=== PATIENT | female | born 1950 | race Caucasian/White ===

== ENCOUNTER 2016-06-06 09:25 | Observation (INO) | payer MEDICARE ==
[2016-06-06 09:45] LABS: Glucose,Whole Blood 113 mg/dL (75-99)
[2016-06-06] MEDS ORDERED: SODIUM CHLORIDE 0.9% 1,000 ML IV STA (09:47)
[2016-06-06] MEDS ORDERED: LORazepam 1 MG TAB PO STA (09:47)
[2016-06-06] MEDS ORDERED: ONDANSETRON 4 MG/2 ML VIAL IVP STA (09:47)
[2016-06-06 10:04] LABS: Basophils % (A) 1 %; CH 30.8; CHCM 33.9; Eosinophils # (A) 0.2 k/uL (0-0.7); Eosinophils % (A) 2 %; HCT 44.1 % (34.0-46.0); HDW 2.57; HGB 14.4 gm/dL (11.4-16.0); Luc # (Auto) 0.09; Luc % (Auto) 1; Lymphocytes # (A) 1.3 k/uL (1.0-4.8); Lymphocytes % (A) 17 %; MCH 29.8 pg (25.0-35.0); MCHC 32.7 g/dL (31.0-37.0); MCV 91.4 fL (80.0-100.0); Mean Platelet Volume 7.9; Monocytes # (A) 0.3 k/uL (0-1.0); Monocytes % (A) 4 %; Neutrophils # (A) 5.7 k/uL (1.3-7.7); Neutrophils % (A) 76 %; RBC 4.83 m/uL (3.80-5.40); RDW 12.7 % (11.5-15.5); WBC 7.6 k/uL (3.8-10.6); WBC (Perox) 7.55
[2016-06-06 10:16] LABS: Partial Thromboplastin Time 23.3 sec (22.0-30.0); Prothrombin Time 10.3 sec (9.0-12.0)
[2016-06-06 10:18] LABS: ALT 42 U/L (9-52); AST 28 U/L (14-36); Alkaline Phosphatase 59 U/L (38-126); Amylase 30 U/L (30-110); Anion Gap 18 mmol/L; Blood Urea Nitrogen 9 mg/dL (7-17); Calcium 9.9 mg/dL (8.4-10.2); Carbon Dioxide 20 mmol/L (22-30); Chloride 108 mmol/L (98-107); Glucose 125 mg/dL (74-99); Magnesium 1.6 mg/dL (1.6-2.3); Non-African American GFR(MDRD) >60 (>60 ml/min/1.73 sqM); Potassium 4.2 mmol/L (3.5-5.1); Sodium 146 mmol/L (137-145); Total Protein 7.8 g/dL (6.3-8.2)
[2016-06-06 10:28] LABS: Creatine Kinase 56 U/L (30-135)
[2016-06-06 10:40] LABS: Troponin I <0.012 ng/mL (0.000-0.034)
[2016-06-06] MEDS ORDERED: KETOROLAC 30 MG/ML 1 ML VIAL IVP STA (11:11)
[2016-06-06] MEDS ORDERED: METOCLOPRAMIDE 5 MG/ML 2 ML VIAL IVP STA (11:11)
[2016-06-06] MEDS ORDERED: SODIUM CHLORIDE 0.9% 500 ML IV ONE (12:09)
--- NOTE | 2016-06-06 12:19 | XR ---
EXAMINATION TYPE: XR chest 2V DATE OF EXAM: 06/06/2016 11:58 AM COMPARISON: NONE HISTORY: chest pain TECHNIQUE: Frontal and lateral views of the chest are obtained. FINDINGS: There is no focal air space opacity, pleural effusion, or pneumothorax seen. The cardiac silhouette size is within normal limits. Overlying cardiac leads. The osseous structures are intac t. IMPRESSION: No acute cardiopulmonary process.
--- NOTE | 2016-06-06 12:22 | XR ---
Abdomen HISTORY: Nausea and vomiting, pain on inspiration Frontal view of the abdomen submitted on 2 images. Scoliotic curvature present in the lumbar spine, there is associated degenerative disc change. Surgic al clips are present in the right upper quadrant and there are overlying cardiac leads. Lung bases ar e clear. There is no bowel obstruction or pneumoperitoneum. Probable vascular calcifications are pres ent in the pelvis. IMPRESSION: Nonobstructive bowel gas pattern
--- NOTE | 2016-06-06 12:22 | ED ---
Chest Pain HPI - General Chief Complaint: Chest Pain Stated Complaint: chest pain Time Seen by Provider: 06/06/16 09:42 Source: patient Mode of arrival: wheelchair Limitations: no limitations - History of Present Illness Initial Comments: She has been vomiting for the last 3 days and complaining about the chest pain with a cold sweats and shortness of breath she denies any history of heart disease no stent placement no history of angina. Graves disease and has not been taking her Synthroid religiously. MLD intractable nausea is gone on for 3 days ago worse this morning. Denies any headaches has chest pain has shortness of breath some discomfort in the epigastric area. Denies any symptoms of TIA or CVA no frequency urgency dysuria - Related Data Home Medications Medication Instructions Recorded Confirmed Acetaminophen with Codeine 1 tab PO BID 06/06/16 06/06/16 [Tylenol w/codeine #4] Aspirin 81 mg PO DAILY 06/06/16 06/06/16 Cholecalciferol [Vitamin D3] 1,000 unit PO DAILY 06/06/16 06/06/16 Krill Oil 500 mg PO DAILY 06/06/16 06/06/16 Levothyroxine Sodium [Synthroid] 75 mcg PO DAILY 06/06/16 06/06/16 Multivitamins, Thera [Multivitamin] 1 tab PO DAILY 06/06/16 06/06/16 Nitrofurantoin Macrocrystal 100 mg PO BID 06/06/16 06/06/16 [Macrodantin] Sertraline [Zoloft] 100 mg PO BID 06/06/16 06/06/16 Allergies Allergy/AdvReac Type Severity Reaction Status Date / Time morphine AdvReac Nausea Verified 06/06/16 10:36 Review of Systems ROS Statement: Those systems with pertinent positive or pertinent negative responses have been documented in the HPI. ROS Other: All systems not noted in ROS Statement are negative. EKG Findings - EKG Comments: EKG Findings:: EKG is a sinus bradycardia ventricular rate is 57 and review of this EKG didn't some artifact in now this EKG but the no ST elevation noticed this is a T-wave inversion in lead 1 and V2 and V3 Past Medical History Past Medical History: Pneumonia Additional Past Medical History / Comment(s): graves disease History of Any Multi-Drug Resistant Organisms: None Reported Past Surgical History: Back Surgery, Section, Cholecystectomy Past Psychological History: No Psychological Hx Reported Smoking Status: Never smoker Past Alcohol Use History: None Reported Past Drug Use History: None Reported General Exam - General Exam Comments Initial Comments: General: The patient is awake and alert, in severe distress and now throwing up Skin: Skin is warm and dry and no rashes or lesions are noted. Eye: Pupils are equal, round and reactive to light, extra-ocular movements are intact; there is normal conjunctiva bilaterally. Ears, nose, mouth and throat: There are moist mucous membranes and no oral lesions. Neck: The neck is supple, there is no stiffness Cardiovascular: There is a regular rate and rhythm. No murmur, rub or gallop is appreciated. Respiratory: To auscultation bilateral, crease breath sounds bilaterally Gastrointestinal: Mildly tender in epigastric area Back: There is no tenderness to palpation in the midline. There is no obvious deformity. Musculoskeletal: Normal ROM, no tenderness, There is no pedal edema. There is no calf tenderness or swelling. No cords were appreciated. Neurological: CN II-XII intact, Cranial nerves III through XII are intact. There are no obvious motor or sensory deficits. Coordination appears grossly intact. Speech is normal. Psychiatric: Cooperative, appropriate mood & affect, normal judgment. Limitations: no limitations Course Vital Signs 06/06/16 06/06/16 06/06/16 09:36 10:03 10:04 Temperature 95.6 F L 96.5 F L Pulse Rate 57 L 54 L Respiratory 18 22 Rate Blood Pressure 157/83 194/90 O2 Sat by Pulse 100 100 Oximetry 06/06/16 06/06/16 10:07 12:41 Temperature Pulse Rate 51 L Respiratory 22 15 Rate Blood Pressure 126/88 O2 Sat by Pulse [address] Laguna came to the ER to see the patient, he was given a scope about patient 's syncope, shortness of breath, recent fall and head injury and possible interstitial pulmonary edema Last time she was reassessed him that was about 1250, she is feeling a lot better she still have a bit of a chest pain nausea vomiting has stopped him a chest pain is 80% better when she compared to when she came in she also has some epigastric discomfort Critical Care Time Total Critical Care Time: 35 Critical Care Time: He came in with intractable nausea and vomiting she was quite stressed out at a chest pain as well as shortness of breath and epigastric pain she be admitted under Dr. Harvey she'll be heparinized no initial troponin is negative considering her epigastric pain she be gone on a PEEP IV PPIs she be admitted under Dr. Salazar service for the cardiology consult she has multiple risk factors now being over 50 and a nausea vomiting diaphoresis with the same time gastritis is also possibility that/UL when necessary IV PPIs and will consult cardiology Disposition Clinical Impression: Chest pain, Nausea and vomiting, Epigastric pain, Acute electrocardiogram changes Disposition: ADMITTED IP TO THIS HOSP Condition: Good Referrals: Nonstaff,Physician [Primary Care Provider] - 1-2 days
[2016-06-06] MEDS ORDERED: NITROGLYCERIN SL TABS 0.4 MG TAB SUBLINGUAL PRN (13:01)
[2016-06-06] MEDS ORDERED: ALPRAZolam 0.25 MG TAB PO PRN (13:01)
[2016-06-06] MEDS ORDERED: ACETAMINOPHEN TAB 325 MG TAB PO PRN (13:01)
[2016-06-06] MEDS: HEPARIN SODIUM,PORCINE 5,000 UNIT/ML 1 ML VIAL IV ONE ×2 (13:33→23:21)
[2016-06-06] MEDS: HEPARIN SODIUM,PORCINE/D5W PMX 25,000 UNIT in DEXTROSE/WATER 1 500ML.BAG IV SCH (13:35)
[2016-06-06] MEDS: SODIUM CHLORIDE 0.9% 1,000 ML IV SCH (13:40)
[2016-06-06 14:07] LABS: Appearance,Urine Clear (Clear); Bilirubin,Urine Negative (Negative); Glucose,Urine (UA) Negative (Negative); Ketones,Urine 1+ (Negative); Leukocyte Esterase,Urine Negative (Negative); Nitrite,Urine Negative (Negative); Protein,Urine Negative (Negative); Specific Gravity,Urine 1.015 (1.001-1.035); UA Billing (MACRO vs. MICRO) CHEM; Urobilinogen,Urine <2.0 mg/dL (<2.0)
[2016-06-06 16:26] LABS: Creatine Kinase 44 U/L (30-135)
[2016-06-06 16:38] LABS: Troponin I <0.012 ng/mL (0.000-0.034)
[2016-06-06] MEDS: PANTOPRAZOLE 40 MG/10 ML VIAL IVP SCH (18:09)
[2016-06-06] MEDS: LEVOTHYROXINE 125 MCG TAB PO SCH (18:09)
--- NOTE | 2016-06-06 19:12 | HP ---
DATE OF ADMISSION: Patient is a very pleasant 65-year-old female who used to work as ( ) retired, came in with complaints of chest pain, which started today morning, which is pressure-like in the retrosternal area associated with nausea along with some colds that lasted for about 3 hours, about 8 out of 10 in severity, improved with ketorolac. Her pain is nonpleuritic in nature. Patient has gastroenteritis-like symptoms, has been going on for 3 days along some nausea. Patient denied any lightheadedness at this point of time. Patient's pain is mostly in the epigastric area and retrosternal area. Patient denied any history of CVA or TIA and denied any history of hypertension, diabetes mellitus. Denied any shortness of breath, dysuria, urgency or frequency. REVIEW OF SYSTEMS: CONSTITUTIONAL: No fever, no malaise, no fatigue. HEENT: No recent visual problems or hearing problems. Denied any sore throat. CARDIOVASCULAR: As described in HPI. PULMONARY: No shortness of breath, no cough, no hemoptysis. GASTROINTESTINAL: As described in HPI. NEUROLOGICAL: No headaches, no weakness, no numbness. HEMATOLOGICAL: Denies any bleeding or petechiae. GENITOURINARY: Denies any burning micturition, frequency, or urgency. MUSCULOSKELETAL/RHEUMATOLOGICAL: Denies any joint pain, swelling, or any muscle pain. ENDOCRINE: Denies any polyuria or polydipsia. The rest of the 14 point review of systems is negative. 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 PAST MEDICAL HISTORY: Significant for pneumonia, Graves' disease. PAST SURGICAL HISTORY: Back surgery section, section, cholecystectomy. SOCIAL HISTORY: Denied any smoking, alcohol abuse or any drug abuse. FAMILY HISTORY: Denied any significant family history of premature myocardial infarction in the family. PHYSICAL EXAMINATION: VITAL SIGNS: Temperature afebrile, pulse of 69, respiratory rate of 18, blood pressure is 161/83, saturating at 100% on room air. GENERAL: The patient is alert and oriented x3, not in any acute distress. Well developed, well nourished. HEENT: Pupils are round and equally reacting to light. EOMI. No scleral icterus. No conjunctival pallor. Normocephalic, atraumatic. No pharyngeal erythema. No thyromegaly. CARDIOVASCULAR: S1 and S2 present. No murmurs, rubs, or gallops. PULMONARY: Chest is clear to auscultation, no wheezing or crackles. ABDOMEN: Soft, nontender, nondistended, normoactive bowel sounds. No palpable organomegaly. MUSCULOSKELETAL: No joint swelling or deformity. EXTREMITIES: No cyanosis, clubbing, or pedal edema. NEUROLOGICAL: Gross neurological examination did not reveal any focal deficits. SKIN: No rashes. LABORATORY DATA: CBC, CMP, troponins essentially within normal limits. EKG did not show any acute ST wave changes. ASSESSMENT AND PLAN: 1. Chest pain, appears to be atypical. Patient is admitted for rule out acute coronary syndrome or unstable angina. The patient will get 2 more sets of troponins and EKGs. Cardiology was consulted. 2. Epigastric abdominal pain along with nausea, probably related to gastritis or gastroenteritis. Patient will be started on Protonix twice a day. Her chest pain is probably related to that. 3. Hypothyroidism. Patient is on levothyroxine at 75 mcg. Because of elevated TSH will increase to 125 mcg. 4. Depression for which patient is on Zoloft, which will be continued.
[2016-06-06 20:59] VITALS: RESP 16
[2016-06-06] MEDS ORDERED: ATORVASTATIN 40 MG TAB PO SCH (21:00)
[2016-06-06 21:08] LABS: Creatine Kinase 34 U/L (30-135)
[2016-06-06 21:21] LABS: Creatine Kinase MB 0.8 ng/mL (0.0-2.4); Troponin I <0.012 ng/mL (0.000-0.034)
[2016-06-06] MEDS: Acetaminophen-Codeine 300-30mg TAB PO SCH (21:42)
[2016-06-06] MEDS: SERTRALINE 100 MG TAB PO SCH (21:47)
[2016-06-06] MEDS: NITROFURANTOIN MONOHYD/M-CRYST 100 MG CAP PO SCH (21:47)
[2016-06-06] MEDS ORDERED: HEPARIN SODIUM,PORCINE 5,000 UNIT/ML 1 ML VIAL IV PRN (23:19)
[2016-06-07 02:35] LABS: Cholesterol 256 mg/dL (<200); HDL Cholesterol 53 mg/dL (40-60); Triglycerides 162 mg/dL (<150)
[2016-06-07] MEDS ORDERED: LEVOTHYROXINE 125 MCG TAB PO SCH (06:30)
[2016-06-07] MEDS: LEVOTHYROXINE 125 MCG TAB PO SCH (06:59)
[2016-06-07] MEDS ORDERED: ASPIRIN 325 MG TAB PO SCH (09:00)
[2016-06-07] MEDS ORDERED: DOBUTamine DRIP for NUC MED 500 MG/250 ML BAG IV ONE (09:00)
[2016-06-07] MEDS ORDERED: LEVOTHYROXINE 75 MCG TAB PO SCH (09:00)
[2016-06-07] MEDS ORDERED: LEVOTHYROXINE IVP 100 MCG/5 ML VIAL IV SCH (09:00)
[2016-06-07] MEDS ORDERED: NON-FORMULARY DRUG (Krill Oil [Krill Oil] 500 MG) PO SCH (09:00)
[2016-06-07] MEDS: NITROFURANTOIN MONOHYD/M-CRYST 100 MG CAP PO SCH (09:21)
[2016-06-07] MEDS: Acetaminophen-Codeine 300-30mg TAB PO SCH (09:21)
[2016-06-07] MEDS: SERTRALINE 100 MG TAB PO SCH (09:21)
[2016-06-07] MEDS: PANTOPRAZOLE 40 MG/10 ML VIAL IVP SCH (09:22)
--- NOTE | 2016-06-07 10:41 | P.CRDCN ---
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 Apparently she's been nauseated and retching and suddenly started having this severe pain. Patient was treated with nitro, Ativan and also Protonix in the emergency room. Gradually her symptoms have improved. Apparently she has had problems with hypothyroidism and has been having bradycardia. She is going to establish with [employer] boss for further management of her hypothyroidism. Her cardiac enzymes are negative. Patient is being scheduled for a stress echocardiogram. She doesn't have a history of hypertension, hypercholesterolemia or previous myocardial infarctions. Her father was a diabetic and of a heart attack. No other family history. TSH is elevated Review of Systems REVIEW OF SYSTEMS: CONSTITUTIONAL:. Patient is doing well. No complaints of fever or chills EYES: Denies diplopia, blurring of vision EARS, NOSE, MOUTH, THROAT: Denies headaches, denies sore throat. CARDIOVASCULAR: As per H&P RESPIRATORY: Denies shortness of breath, denies cough. GASTROINTESTINAL: As per HPI. GENITOURINARY: Denies hematuria, denies infections. MUSKULOSKELETAL: Denies pain, denies swelling. Denies any cramps or claudication INTEGUMENTARY: Denies rash, denies eczema. NEUROLOGICAL: Denies focal weakness, or visual disturbance. Denies any dizziness or syncope PSYCHIATRIC: Denies anxiety, denies depression. HEMATOLOGIC/LYMPHATIC: Denies any bleeding, denies enlarged lymph nodes. Past Medical History Past Medical History: Fibromyalgia, Pneumonia Additional Past Medical History / Comment(s): Graves disease, hypothyroid, HOL 25+, chronic UTI, recent UTI with yeast, bilateral hips bursitis. History of Any Multi-Drug Resistant Organisms: None Reported Past Surgical History: Back Surgery, Section, Cholecystectomy Additional Past Surgical History / Comment(s): lumbar laminectomy, C-sections x2 , colonoscopy-normal, bilateral eye surgery (muscle repair) as a child Past Anesthesia/Blood Transfusion Reactions: No Reported Reaction Past Psychological History: No Psychological Hx Reported Additional Psychological History / Comment(s): Pt resides with her spouse and has just moved from [place]. She states she has been under increased stress related to this move. She is independent. Smoking Status: Former smoker Past Alcohol Use History: Rare Additional Past Alcohol Use History / Comment(s): Pt states she started smoking in 1970 and quit in 1995. Past Drug Use History: None Reported - Past Family History Father Family Medical History: Coronary Artery Disease (CAD), Diabetes Mellitus, Myocardial Infarction (VT), Vascular Disorder Additional Family Medical History / Comment(s): Father of a VT at the age of 71yrs. Mother Family Medical History: Thyroid Disorder Additional Family Medical History / Comment(s): Mother had Grave's disease and HOL 25+ (pt states it is a autoimmune disease). Mother also had cancer of the breast and lung and survived both due to early detection. She at the age of 90yrs. Medications and Allergies Home Medications Medication Instructions Recorded Confirmed Type Acetaminophen with Codeine 1 tab PO BID 06/06/16 06/06/16 History [Tylenol w/codeine #4] Aspirin 81 mg PO DAILY 06/06/16 06/06/16 History Cholecalciferol [Vitamin D3] 1,000 unit PO DAILY 06/06/16 06/06/16 History Femring 0.05mg Vaginal Ring 0.05 mg VAGINAL Q90D 06/06/16 06/06/16 History Krill Oil 500 mg PO DAILY 06/06/16 06/06/16 History Levothyroxine Sodium [Synthroid] 75 mcg PO DAILY 06/06/16 06/06/16 History Multivitamins, Thera [Multivitamin] 1 tab PO DAILY 06/06/16 06/06/16 History Nitrofurantoin Macrocrystal 100 mg PO BID 06/06/16 06/06/16 History [Macrodantin] Sertraline [Zoloft] 100 mg PO BID 06/06/16 06/06/16 History medroxyPROGESTERone [Depo-Provera] 450 mg IM Q30D 06/06/16 06/06/16 History Allergies Allergy/AdvReac Type Severity Reaction Status Date / Time morphine AdvReac Nausea Verified 06/06/16 10:36 Physical Exam Vitals: Vital Signs Temp Pulse Pulse Resp BP BP Pulse Ox 06/07/16 06:46 98.2 F 52 L 16 104/58 97 06/07/16 04:00 53 L 16 06/07/16 00:00 98.0 F 50 L 16 121/66 97 06/06/16 20:00 98.0 F 54 L 16 113/56 95 06/06/16 16:00 61 18 06/06/16 14:52 61 18 06/06/16 14:00 61 18 129/80 95 06/06/16 13:37 98.4 F 53 L 15 146/82 99 Intake and Output 06/06/16 06/07/16 06/07/16 22:59 06:59 14:59 Intake Total 236 194 Balance 236 194 Intake: Intake, IV Titration 194 Amount Heparin Sodium,Porcine/ 194 D5w Pmx 25,000 unit In Dextrose/Water 1 500ml. bag @ 11.306 UNITS/KG/HR 20 mls/hr IV .Q24H [facility] Rx #:[id number] Oral 236 Other: # Voids 1 1 GENERAL EXAM: Patient is alert and oriented and doesn't appear to be in any acute distress HEENT: Normocephalic. Normal reaction of pupils, equal size, normal range of extraocular motion. No erythema or exudates in the throat. NECK: No masses, no nuchal rigidity. CHEST: No chest wall deformity. LUNGS: Equal air entry with no crackles or wheeze. HEART: S1 and S2 normal with no audible mumurs or gallops. Regular rhythm, femorals equal on both sides.. ABDOMEN: No hepatosplenomegaly, normal bowel sounds, no guarding or rigidity. SKIN: No rashes CENTRAL NERVOUS SYSTEM: No focal deficits. EXTREMITIES: No cyanosis, clubbing or edema. Results 06/06/16 09:47 06/06/16 09:47 Cardiac Enzymes 06/06/16 06/06/16 Range/Units 15:34 20:32 CK-MB (CK-2) 1.0 0.8 (0.0-2.4) ng/mL Troponin I <0.012 <0.012 (0.000-0.034) ng/mL Coagulation 06/06/16 06/07/16 Range/Units 20:32 06:36 APTT 39.2 H 48.7 H (22.0-30.0) sec Current Medications Generic Name Dose Route Start Last Admin Trade Name Freq PRN Reason Stop Dose Admin Acetaminophen 650 mg 06/06/16 13:01 Tylenol Tab PO Q4HR PRN Pain Acetaminophen/Codeine Phosphate 1 each 06/06/16 21:00 06/07/16 09:21 Tylenol #3 PO 1 each BID [facility] Administration Alprazolam 0.25 mg 06/06/16 13:01 Xanax PO QID PRN Anxiety Aspirin 325 mg 06/07/16 09:00 06/07/16 09:22 Aspirin PO 325 mg DAILY [facility] Administration Atorvastatin Calcium 40 mg 06/06/16 21:00 06/06/16 21:47 Lipitor PO 40 mg HS [facility] Administration Cholecalciferol 1,000 unit 06/07/16 12:00 Vitamin D3 PO 1200 [facility] Heparin Sodium (Porcine) 0 unit 06/06/16 23:19 Heparin IV PER PROTOCOL PRN Low PTT Protocol Heparin Sodium/Dextrose 25,000 500 mls @ 20 mls/hr 06/06/16 13:15 06/06/16 23 :17 unit/ IV Solution IV 14.35 units/kg/hr .Q24H [facility] 25.4 mls/hr Protocol Titration 11.306 UNITS/KG/HR Sodium Chloride 1,000 mls @ 100 mls/hr 06/06/16 13:15 06/06/16 13:40 Saline 0.9% IV Not Given .Q10H [facility] Levothyroxine Sodium 125 mcg 06/06/16 16:24 06/07/16 06:59 Synthroid PO 125 mcg DAILY@0630 [facility] Administration Multivitamins 1 each 06/07/16 12:00 Theragran PO 1200 [facility] Nitrofurantoin Macrocrystals 100 mg 06/06/16 21:00 06/07/16 09:21 Macrobid PO 100 mg BID [facility] Administration Nitroglycerin 0.4 mg 06/06/16 13:01 Nitrostat SUBLINGUAL Q5M PRN Chest Pain Pantoprazole Sodium 40 mg 06/06/16 14:45 06/07/16 09:22 Protonix IVP 40 mg DAILY [facility] Administration Sertraline HCl 100 mg 06/06/16 21:00 06/07/16 09:21 Zoloft PO 100 mg BID [facility] Administration Intake and Output 06/06/16 06/07/16 06/07/16 22:59 06:59 14:59 Intake Total 236 194 Balance 236 194 Intake: Intake, IV Titration 194 Amount Heparin Sodium,Porcine/ 194 D5w Pmx 25,000 unit In Dextrose/Water 1 500ml. bag @ 11.306 UNITS/KG/HR 20 mls/hr IV .Q24H [facility] Rx #:[id number] Oral 236 Other: # Voids 1 1 EKG Interpretations (text) Sinus rhythm and sinus bradycardia Assessment and Plan (1) Hypothyroidism Status: Acute (2) Chest pain Status: Acute (3) Epigastric pain Status: Acute Plan: Her chest pains appear to be atypical and her cardiac enzymes are negative. She is being scheduled for stress echo. If that is negative patient could be discharged home.
[2016-06-07 11:15] VITALS: BMI 30.7
[2016-06-07] MEDS ORDERED: DOBUTamine DRIP for NUC MED 500 MG in DEXTROSE/WATER 1 250ML.BAG IV ONE (12:00)
[2016-06-07] MEDS ORDERED: CHOLECALCIFEROL 1,000 UNIT TAB PO SCH (12:00)
[2016-06-07] MEDS ORDERED: MULTIVITAMINS, THERA 1 EACH TAB PO SCH (12:00)
[2016-06-07] MEDS ORDERED: ONDANSETRON 4 MG/2 ML VIAL ONE (12:24)
[2016-06-07 12:41] VITALS: BP 126/78; PULSE 61; TEMP 98.4
--- NOTE | 2016-06-07 12:55 | ECHOS ---
DATE OF SERVICE: 06/07/2016 AGE: 65Y SEX: F HT: 67 WT: 190 lbs. Protocol Dajuan: Others: Dobutamine Stress Echo Stage: Dur. of Exercise: *Heart Rate Blood Pressure *Rest: 46 Rest: 123/67 * *Max. Achieved: 140 Maximum BP: 168/52 85% PMHR: 132 100% PMHR: 155 *METS: INDICATIONS: Chest pain. MEDICATIONS: CLINICAL INFORMATION: Chest pain, history of shortness of breath, palpitations, family history of coronary artery disease. Patient is an ex-smoker, smoked for about 30 years. Resting ECG shows sinus rhythm, rate of 46 beats per minute, WI interval 0.16, QRS of 0.08, poor R wave progression in anteroseptal leads. Utilizing a standard dobutamine protocol, dobutamine increased up to 40 mg along with exercise increased the heart rate up to 140 beats per minute, which is approximately 90% predicted maximum heart rate without any chest pain or pressure. Patient was nauseated. Patient has received some Zofran with improvement. Patient did not complain of chest pain or pressure. No ST segment deviations indicative of ischemia were noted. Baseline images show normal thickening and contractility. Post dobutamine exercise images show improved contractility and thickening in all segments consistent with normal dobutamine stress echocardiogram. STOCK ROLLER IMPRESSION: 1. Normal dobutamine stress echocardiogram. 2. Patient did not report any symptoms throughout the study. 3. No ST segment deviations indicative of ischemia are noted in any of the monitoring 12 leads.
[2016-06-07] MEDS: HEPARIN SODIUM,PORCINE/D5W PMX 25,000 UNIT in DEXTROSE/WATER 1 500ML.BAG IV SCH (16:16)
[2016-06-07] MEDS: SODIUM CHLORIDE 0.9% 1,000 ML IV SCH (16:18)
--- NOTE | 2016-06-08 10:56 | DS ---
DATE OF ADMISSION: 06/06/2016 DATE OF DISCHARGE: 06/07/2016 Patient is admitted with chest pain, ruled out acute coronary artery syndrome. Patient had a stress test, which was negative. The patient has probably gastritis or gastroenteritis, which improved. Patient's symptoms significantly improved and if patient continues to have symptoms of acid reflex patient was asked to take [id number] Prilosec. Patient will be referred to Dr. Phu Schmitz. Patient has highly elevated TSH because of which I increased the dose of levothyroxine and patient will follow up with ( ) for endocrinology. Patient was seen and examined the day of discharge. Vitals are stable. PHYSICAL EXAMINATION: GENERAL: The patient is alert and oriented x3, not in any acute distress. Well developed, well nourished. HEENT: Pupils are round and equally reacting to light. EOMI. No scleral icterus. No conjunctival pallor. Normocephalic, atraumatic. No pharyngeal erythema. No thyromegaly. CARDIOVASCULAR: S1 and S2 present. No murmurs, rubs, or gallops. PULMONARY: Chest is clear to auscultation, no wheezing or crackles. ABDOMEN: Soft, nontender, nondistended, normoactive bowel sounds. No palpable organomegaly. MUSCULOSKELETAL: No joint swelling or deformity. EXTREMITIES: No cyanosis, clubbing, or pedal edema. NEUROLOGICAL: Gross neurological examination did not reveal any focal deficits. SKIN: No rashes. FINAL DIAGNOSES: 1. Chest pain, appears to be atypical, ruled out acute coronary syndrome. Stress test is negative. 2. Gastric abdominal pain probably due to gastroenteritis, which resolved at this point of time. 3. Hyperthyroidism. 4. Depression. DISCHARGE MEDICATIONS: Will increase the dose of levothyroxine. The rest of the medications can be continued as it is. Patient will follow with Dr. Phu Schmitz in one week. Activity as tolerated. Regular diet.
== END 2016-06-07 15:41 | disposition home or self-care (01) ==
LOC: EC 09:25 → 3OBS 13:01
PROVIDERS: ADMIT Internal Medicine; ATTEND Internal Medicine
DX: R07.89 Other chest pain (principal); R10.13 Epigastric pain; R11.0 Nausea; E03.9 Hypothyroidism, unspecified; E05.00 Thyrotoxicosis with diffuse goiter without thyrotoxic crisis or storm; R00.1 Bradycardia, unspecified; F32.9 Major depressive disorder, single episode, unspecified; Z79.82 Long term (current) use of aspirin; Z79.899 Other long term (current) drug therapy; Z82.49 Family history of ischemic heart disease and other diseases of the circulatory system; Z83.3 Family history of diabetes mellitus; Z80.3 Family history of malignant neoplasm of breast; Z80.1 Family history of malignant neoplasm of trachea, bronchus and lung
CPT/HCPCS: 99291; 96375 ×3; 96376; 96361 ×4; 36415; 93005; 93017; 93350; 84439; 80061; 80053; 82150; 82550; 82553; 83690; 83735; 84443; 84484; 85025; 85610; 85730 ×2; 81003; 87086; 71020; 74000; G0378 ×2; J1644 ×2; J2765; J2405 ×2; J1885; C9113 ×2; 96365; 96366

== ENCOUNTER 2016-06-07 22:25 | Emergency (ER) | payer MEDICARE ==
[2016-06-07] MEDS ORDERED: ONDANSETRON 4 MG/2 ML VIAL IVP STA (22:35)
[2016-06-07] MEDS ORDERED: LORazepam 2 MG/ML SYRINGE IV STA (22:35)
--- NOTE | 2016-06-07 22:38 | ED ---
General Adult HPI - General Stated complaint: Chest Pain-revisit Time Seen by Provider: 06/07/16 22:30 Source: RN notes reviewed - History of Present Illness Initial comments: This is a 65-year-old female who presents to the emergency department after being released this morning. Patient states she started off with some vomiting about 5 days ago that about 3 days ago she started to have cold sweats and 2 days ago she started having epigastric/chest pain and came to the hospital. Patient states she was admitted for one day a did cardiac enzymes which were normal. Patient states then they did a stress test that was normal as well and let her go home. Patient states she felt good all day today until she ate some cottage cheese she started the dry heaving again and then had cold sweats. And she states that she started to have epigastric pain again. Patient denies any upper anterior chest pain. Patient denies any difficulty breathing or shortness of breath. Patient denies any fever chills or cough. Patient denies any diarrhea. Patient states she thinks she she is having a vasovagal episode when she starts to have the dry heaves. Patient states when she was in the hospital he told her her heart rate was in the upper 40s at one time when she was sick. - Related Data Home Medications Medication Instructions Recorded Confirmed Acetaminophen with Codeine 1 tab PO BID 06/06/16 06/06/16 [Tylenol w/codeine #4] Aspirin 81 mg PO DAILY 06/06/16 06/06/16 Cholecalciferol [Vitamin D3] 1,000 unit PO DAILY 06/06/16 06/06/16 Femring 0.05mg Vaginal Ring 0.05 mg VAGINAL Q90D 06/06/16 06/06/16 Krill Oil 500 mg PO DAILY 06/06/16 06/06/16 Levothyroxine Sodium [Synthroid] 75 mcg PO DAILY 06/06/16 06/06/16 Multivitamins, Thera [Multivitamin] 1 tab PO DAILY 06/06/16 06/06/16 Nitrofurantoin Macrocrystal 100 mg PO BID 06/06/16 06/06/16 [Macrodantin] Sertraline [Zoloft] 100 mg PO BID 06/06/16 06/06/16 medroxyPROGESTERone [Depo-Provera] 450 mg IM Q30D 06/06/16 06/06/16 Allergies Allergy/AdvReac Type Severity Reaction Status Date / Time morphine AdvReac Nausea Verified 06/06/16 10:36 Review of Systems ROS Statement: Those systems with pertinent positive or pertinent negative responses have been documented in the HPI. ROS Other: All systems not noted in ROS Statement are negative. Past Medical History Past Medical History: Fibromyalgia, Pneumonia Additional Past Medical History / Comment(s): Graves disease, hypothyroid, HOL 25+, chronic UTI, recent UTI with yeast, bilateral hips bursitis. History of Any Multi-Drug Resistant Organisms: None Reported Past Surgical History: Back Surgery, Section, Cholecystectomy Additional Past Surgical History / Comment(s): lumbar laminectomy, C-sections x2 , colonoscopy-normal, bilateral eye surgery (muscle repair) as a child Past Anesthesia/Blood Transfusion Reactions: No Reported Reaction Past Psychological History: No Psychological Hx Reported Additional Psychological History / Comment(s): Pt resides with her spouse and has just moved from [place]. She states she has been under increased stress related to this move. She is independent. Smoking Status: Former smoker Past Alcohol Use History: Rare Additional Past Alcohol Use History / Comment(s): Pt states she started smoking in 1970 and quit in 1995. Past Drug Use History: None Reported - Past Family History Father Family Medical History: Coronary Artery Disease (CAD), Diabetes Mellitus, Myocardial Infarction (RI), Vascular Disorder Additional Family Medical History / Comment(s): Father of a RI at the age of 71yrs. Mother Family Medical History: Thyroid Disorder Additional Family Medical History / Comment(s): Mother had Grave's disease and HOL 25+ (pt states it is a autoimmune disease). Mother also had cancer of the breast and lung and survived both due to early detection. She at the age of 90yrs. General Exam - General Exam Comments Initial Comments: GENERAL: Patient is well-developed and well-nourished. Patient is nontoxic and well- hydrated and is in mild distress. ENT: Neck is soft and supple. No significant lymphadenopathy is noted. Oropharynx is clear. Moist mucous membranes. Neck has full range of motion without eliciting any pain. EYES: The sclera were anicteric and conjunctiva were pink and moist. Extraocular movements were intact and pupils were equal round and reactive to light. Eyelids were unremarkable. PULMONARY: Unlabored respirations. Good breath sounds bilaterally. No audible rales rhonchi or wheezing was noted. CARDIOVASCULAR: There is a regular rate and rhythm without any murmurs gallops or rubs. ABDOMEN: Soft and nontender with normal bowel sounds. No palpable organomegaly was noted. There is no palpable pulsatile mass. SKIN: Skin is clear with no lesions or rashes and otherwise unremarkable. NEUROLOGIC: Patient is alert and oriented x3. Cranial nerves II through XII are grossly intact. Motor and sensory are also intact. Normal speech, volume and content. Symmetrical smile. MUSCULOSKELETAL: Normal extremities with adequate strength and full range of motion. No lower extremity swelling or edema. No calf tenderness. LYMPHATICS: No significant lymphadenopathy is noted PSYCHIATRIC: Normal psychiatric evaluation. Normal interpersonal interactions appears functionally intact in deals appropriately with others. No signs of depression. Patient is moderately anxious Course Vital Signs 06/07/16 22:49 Temperature 97.1 F L Pulse Rate 66 Respiratory 22 Rate Blood Pressure 168/88 O2 Sat by Pulse 100 Oximetry Medical Decision Making - Medical Decision Making EKG shows sinus bradycardia 53 bpm MT intervals 202 QRS is 90 QT intervals 430 QTC is 403. Patient's EKG shows no ST segment elevation or depression or T wave abnormalities are noted. I went back in and reevaluate the patient she stated she was feeling much better and she is no longer nauseated. 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 Patient states that she had some Zofran to take home she thinks she will do much better. Patient denies any chest discomfort or abdominal discomfort at this time - Lab Data Result diagrams: 06/07/16 22:40 06/07/16 22:40 Lab Results 06/07/16 06/07/16 06/07/16 Range/Units 22:40 22:40 22:40 WBC 6.7 (3.8-10.6) k/uL RBC 4.49 (3.80-5.40) m/uL Hgb 13.4 (11.4-16.0) gm/dL Hct 41.9 (34.0-46.0) % MCV 93.3 (80.0-100.0) fL MCH 29.8 (25.0-35.0) pg MCHC 32.0 (31.0-37.0) g/dL RDW 12.8 (11.5-15.5) % Plt Count 197 (150-450) k/uL Neutrophils % 60 % Lymphocytes % 31 % Monocytes % 4 % Eosinophils % 3 % Basophils % 1 % Neutrophils # 4.0 (1.3-7.7) k/uL Lymphocytes # 2.1 (1.0-4.8) k/uL Monocytes # 0.3 (0-1.0) k/uL Eosinophils # 0.2 (0-0.7) k/uL Basophils # 0.0 (0-0.2) k/uL PT (9.0-12.0) sec INR (<1.1) APTT (22.0-30.0) sec Sodium 145 (137-145) mmol/L Potassium 3.6 (3.5-5.1) mmol/L Chloride 108 H (98-107) mmol/L Carbon Dioxide 26 (22-30) mmol/L Anion Gap 11 mmol/L BUN 7 (7-17) mg/dL Creatinine 0.83 (0.52-1.04) mg/dL Est GFR (MDRD) Af Amer >60 (>60 ml/min/1.73 sqM) Est GFR (MDRD) Non-Af >60 (>60 ml/min/1.73 sqM) Glucose 99 (74-99) mg/dL Calcium 9.5 (8.4-10.2) mg/dL Magnesium 1.6 (1.6-2.3) mg/dL Total Bilirubin 0.9 (0.2-1.3) mg/dL AST 25 (14-36) U/L ALT 41 (9-52) U/L Alkaline Phosphatase 49 (38-126) U/L Total Creatine Kinase 46 (30-135) U/L CK-MB (CK-2) 1.0 (0.0-2.4) ng/mL CK-MB (CK-2) Rel Index 2.2 Troponin I 0.013 (0.000-0.034) ng/mL Total Protein 7.3 (6.3-8.2) g/dL Albumin 4.3 (3.5-5.0) g/dL 06/07/16 Range/Units 22:40 WBC (3.8-10.6) k/uL RBC (3.80-5.40) m/uL Hgb (11.4-16.0) gm/dL Hct (34.0-46.0) % MCV (80.0-100.0) fL MCH (25.0-35.0) pg MCHC (31.0-37.0) g/dL RDW (11.5-15.5) % Plt Count (150-450) k/uL Neutrophils % % Lymphocytes % % Monocytes % % Eosinophils % % Basophils % % Neutrophils # (1.3-7.7) k/uL Lymphocytes # (1.0-4.8) k/uL Monocytes # (0-1.0) k/uL Eosinophils # (0-0.7) k/uL Basophils # (0-0.2) k/uL PT 10.4 (9.0-12.0) sec INR 1.0 (<1.1) APTT 22.7 (22.0-30.0) sec Sodium (137-145) mmol/L Potassium (3.5-5.1) mmol/L Chloride (98-107) mmol/L Carbon Dioxide (22-30) mmol/L Anion Gap mmol/L BUN (7-17) mg/dL Creatinine (0.52-1.04) mg/dL Est GFR (MDRD) Af Amer (>60 ml/min/1.73 sqM) Est GFR (MDRD) Non-Af (>60 ml/min/1.73 sqM) Glucose (74-99) mg/dL Calcium (8.4-10.2) mg/dL Magnesium (1.6-2.3) mg/dL Total Bilirubin (0.2-1.3) mg/dL AST (14-36) U/L ALT (9-52) U/L Alkaline Phosphatase (38-126) U/L Total Creatine Kinase (30-135) U/L CK-MB (CK-2) (0.0-2.4) ng/mL CK-MB (CK-2) Rel Index Troponin I (0.000-0.034) ng/mL Total Protein (6.3-8.2) g/dL Albumin (3.5-5.0) g/dL Disposition Clinical Impression: Vasovagal attack, Bradycardia, Nausea & vomiting Disposition: HOME SELF-CARE Instructions: Acute Nausea and Vomiting (ED) Time of Disposition: 23:53
[2016-06-07 22:56] LABS: Basophils % (A) 1 %; CHCM 33.4; Eosinophils # (A) 0.2 k/uL (0-0.7); Eosinophils % (A) 3 %; HCT 41.9 % (34.0-46.0); HGB 13.4 gm/dL (11.4-16.0); Luc % (Auto) 2; Lymphocytes # (A) 2.1 k/uL (1.0-4.8); Lymphocytes % (A) 31 %; MCH 29.8 pg (25.0-35.0); MCV 93.3 fL (80.0-100.0); Mean Platelet Volume 7.8; Monocytes # (A) 0.3 k/uL (0-1.0); Monocytes % (A) 4 %; Neutrophils % (A) 60 %; RBC 4.49 m/uL (3.80-5.40); RDW 12.8 % (11.5-15.5); WBC 6.7 k/uL (3.8-10.6); WBC (Perox) 6.76
[2016-06-07 23:03] LABS: Partial Thromboplastin Time 22.7 sec (22.0-30.0); Prothrombin Time 10.4 sec (9.0-12.0)
[2016-06-07 23:06] LABS: ALT 41 U/L (9-52); AST 25 U/L (14-36); Alkaline Phosphatase 49 U/L (38-126); Anion Gap 11 mmol/L; Blood Urea Nitrogen 7 mg/dL (7-17); Calcium 9.5 mg/dL (8.4-10.2); Carbon Dioxide 26 mmol/L (22-30); Chloride 108 mmol/L (98-107); Glucose 99 mg/dL (74-99); Magnesium 1.6 mg/dL (1.6-2.3); Non-African American GFR(MDRD) >60 (>60 ml/min/1.73 sqM); Potassium 3.6 mmol/L (3.5-5.1); Sodium 145 mmol/L (137-145); Total Bilirubin 0.9 mg/dL (0.2-1.3); Total Protein 7.3 g/dL (6.3-8.2)
[2016-06-07 23:23] LABS: Troponin I 0.013 ng/mL (0.000-0.034)
--- NOTE | 2016-06-07 23:51 | XR ---
EXAMINATION TYPE: XR chest 2V DATE OF EXAM: 06/07/2016 11:28 PM COMPARISON: 06/06/2016 HISTORY: Prior on synapse, nausea, underactive thyroid, cold sweats, dizziness TECHNIQUE: Frontal and lateral views of the chest are obtained. FINDINGS: There is no focal air space opacity, pleural effusion, or pneumothorax seen. Mild chronic lung changes are suggested. Thoracic aorta is tortuous and ectatic. The cardiac silhouette size is wi thin normal limits. The osseous structures are intact. IMPRESSION: No acute cardiopulmonary process. No significant interval change.
[2016-06-07] MEDS ORDERED: ONDANSETRON 4 MG ODT STARTER PACK 2 TAB BTL PO STA (23:55)
[2016-06-08 00:22] VITALS: BP 133/74; PULSE 54; RESP 18; TEMP 97.7
== END 2016-06-08 00:21 | disposition home or self-care (01) ==
LOC: EC 22:25
DX: R55 Syncope and collapse (principal); R00.1 Bradycardia, unspecified; R11.2 Nausea with vomiting, unspecified; Z79.899 Other long term (current) drug therapy; Z79.82 Long term (current) use of aspirin; Z79.890 Hormone replacement therapy; Z88.5 Allergy status to narcotic agent; E03.9 Hypothyroidism, unspecified; Z87.891 Personal history of nicotine dependence; E05.00 Thyrotoxicosis with diffuse goiter without thyrotoxic crisis or storm; M35.8 Other specified systemic involvement of connective tissue; M79.7 Fibromyalgia
CPT/HCPCS: 96374; 96375; 99285; 36415; 93005; 80053; 82550; 82553; 83735; 84484; 85025; 85610; 85730; 71020; J2060; J2405; S0119

== ENCOUNTER → 2016-07-04 | Outpatient (CLI) | payer MEDICARE ==
--- NOTE | 2016-07-04 16:48 | US ---
EXAMINATION TYPE: US thyroid st tissue head/neck DATE OF EXAM: 07/04/2016 4:22 PM COMPARISON: NONE CLINICAL HISTORY: E05.00 Thyrotoxicosis. 20 years been on synthroid blood work unable to regulate GLAND SIZE: Right Lobe: 2.0 x 0.9 c 1.1 cm Overall Parenchyma: heterogenous Left Lobe: 2.7 x 0.7 x 0.3 cm Overall Parenchyma: heterogeneous Isthmus Thickness: 0.2 cm NODULES RIGHT: # of nodules measured on right: 0 LEFT: # of nodules measured on left: 0 ISTHMUS: # of nodules measured in the isthmus: 0 TECHNOLOGIST IMPRESSION: very small thyroid difficult to assess no definite mass seen Bilateral neck scanned, no abnormal lymphadenopathy noted. IMPRESSION: Heterogeneous small thyroid is present, no worrisome greater than 1 cm solid or cystic nodules are cl early seen.
== END | disposition home or self-care (01) ==
LOC: RADUSWWP 15:31
PROVIDERS: ATTEND Family Medicine
DX: E05.00 Thyrotoxicosis with diffuse goiter without thyrotoxic crisis or storm (principal)
CPT/HCPCS: 76536

== ENCOUNTER → 2016-12-19 | Outpatient (CLI) | payer MEDICARE ==
[2016-12-19 18:45] LABS: Non-African American GFR(MDRD) >60 (>60 ml/min/1.73 sqM)
--- NOTE | 2016-12-19 23:11 | MR ---
EXAMINATION TYPE: MR lumbar spine wo/w con DATE OF EXAM: 12/19/2016 COMPARISON: NONE HISTORY: Low back pain, Hip pain, difficulty walking x5 years TECHNIQUE: Multiplanar, multisequence images of the lumbar spine were acquired utilizing 15 mL intravenous Multi Alex gadolinium contrast. The lumbar vertebra have normal alignment. There is narrowing and decreased signal in the disks from L3 to S1. There is no compression fracture. There is no lumbar paraspinal mass. There is multilevel h ypertrophic facet arthropathy. There is posterior central L3-4 disc herniation with facet arthropathy . There is resultant mild relative spinal stenosis. The upper sacroiliac joints appear intact. I see no pathologic enhancement. There is multilevel ligamentum flavum thickening there is worse at L3-4. L umbar nerve roots appear normal. There is neural foraminal stenosis bilaterally at L4-5 and L5-S1 due to disc space narrowing and facet arthropathy. There is a small area of epidural enhancement associa jose with the L3-4 mild posterior disc herniation. There is small posterior L2-3 disc bulge. There is small posterior L4 5 disc herniation. IMPRESSION: Multilevel spondylotic changes. There is more significant abnormality of L3-4 with posterior small ce ntral disc herniation and facet arthropathy. There is a mild relative spinal stenosis. No fracture. B ilateral L4-5 L5-S1 neural foraminal stenosis.
== END | disposition home or self-care (01) ==
LOC: RADMRIMAIN 17:42
PROVIDERS: ATTEND Orthopaedic Surgery
DX: M48.06 Spinal stenosis, lumbar region (principal); M99.73 Connective tissue and disc stenosis of intervertebral foramina of lumbar region; M51.26 Other intervertebral disc displacement, lumbar region; M47.816 Spondylosis without myelopathy or radiculopathy, lumbar region; M46.06 Spinal enthesopathy, lumbar region
CPT/HCPCS: 82565; 72158; A9577

== ENCOUNTER → 2017-01-06 | Outpatient (CLI) | payer MEDICARE ==
--- NOTE | 2017-01-06 13:43 | XR ---
Thoracic spine HISTORY: Thoracic pain 2 views of the thoracic spine on 3 images Comparison chest x-ray 06/07/2016 There is a S-shaped thoracic scoliosis present. Dressing vertebral bodies show preserved height, alig nment, and bone mineralization. There is multilevel spondylosis. Disc spaces are relatively maintaine d. IMPRESSION: Scoliosis and degenerative disc disease.
== END | disposition home or self-care (01) ==
LOC: RADXRMAIN 10:50
PROVIDERS: ATTEND Family Medicine
DX: M51.34 Other intervertebral disc degeneration, thoracic region (principal); M41.84 Other forms of scoliosis, thoracic region
CPT/HCPCS: 72070

== ENCOUNTER → 2017-02-07 | Outpatient (CLI) | payer MEDICARE ==
[2017-02-07 15:12] LABS: Blood Urea Nitrogen 24 mg/dL (7-17); Non-African American GFR(MDRD) >60 (>60 ml/min/1.73 sqM)
--- NOTE | 2017-02-07 16:50 | CT ---
EXAMINATION TYPE: CT abdomen pelvis w con DATE OF EXAM: 02/07/2017 COMPARISON: NONE HISTORY: Nausea and 35lb weight loss x8 months. CT DLP: 1124.9 mGycm CONTRAST: CT scan of the abdomen and pelvis is performed with Oral Contrast and with IV Contrast, patient injec jose with 100 mL of Omnipaque 300. FINDINGS: LUNG BASES-: No visible nodule. No infiltrate. LIVER/GB: Cholecystectomy clips are in place. No space occupying hepatic lesion. Biliary tree is o f normal caliber. PANCREAS: No inflammation. No distinct mass. SPLEEN: No splenic enlargement. No lesion seen. ADRENALS: No nodule. No thickening. KIDNEYS/BLADDER: No hydronephrosis. No nephrolithiasis. Simple renal cysts noted bilaterally. Bila teral extrarenal pelvis. Urinary bladder grossly unremarkable. BOWEL: Normal appendix. Normal bowel caliber. No inflammation. GENITAL ORGANS: No uterine mass or adnexal lesion. Pessary is in place. LYMPH NODES: No greater than 1cm abdominal or pelvic lymph nodes are appreciated. AORTA: No significant abnormality. OSSEOUS STRUCTURES: Severe degenerative change lumbar spine with vacuum disc noted. OTHER: Small fat-containing umbilical hernia. IMPRESSION: 1. No significant abnormality to account for the patient's symptoms.
== END | disposition home or self-care (01) ==
LOC: RADCTMAIN 14:36
PROVIDERS: ATTEND Surgery
DX: R10.9 Unspecified abdominal pain (principal)
CPT/HCPCS: 82565; 84520; 74177; 36415; Q9967

== ENCOUNTER 2017-02-13 11:23 | Day surgery (SDC) | payer MEDICARE ==
[2017-02-13 12:34] VITALS: RESP 18; TEMP 97.9
[2017-02-13] MEDS ORDERED: LACTATED RINGERS 1,000 ML IV ONE (12:46)
[2017-02-13] MEDS ORDERED: LIDOCAINE 1% 20 ML VIAL (10MG/ML) FOR IV START INTRADERMA ONE (12:47)
[2017-02-13] MEDS ORDERED: ONDANSETRON 4 MG/2 ML VIAL IVP ONE (12:51)
[2017-02-13] MEDS ORDERED: PROPOFOL 10 MG/ML 20 ML VIAL IV ONE (13:11)
[2017-02-13] MEDS ORDERED: LIDOCAINE 1% INJ 10MG/ML (20 ML MDV) ONE (13:11)
--- NOTE | 2017-02-13 14:10 | P.OP ---
Date of Procedure: 02/13/17 Preoperative Diagnosis: Weight loss Screening for colon cancer Postoperative Diagnosis: Weight loss Screening for colon cancer Small benign looking rectosigmoid polyp less than 4 mm Procedure(s) Performed: Colonoscopy with hot snare polypectomy Anesthesia: JORDYN FRANCISCO Surgeon: Marco A Orozco Pathology: none sent Condition: stable Description of Procedure: The patient was brought to the endoscopy suite and placed in lateral decubitus position. IV sedation was given as per anesthesia team. A timeout was performed to verify correct patient and correct procedure. Perianal examination revealed external external skin tags. Digital rectal examination was performed. A well-lubricated endoscope was passed per rectally and was gradually advanced beyond the sigmoid colon, splenic flexure, transverse colon, hepatic flexure and cecum. The ileocecal valve was visualized. Scope was gradually withdrawn inspecting all the mucosal surfaces. A polyp was seen in the rectosigmoid junction that was completely removed but not recovered witha hot snare. Bowel prep was good. No other polyps or masses noted. Retroflexed in the rectum and normal size internal hemorrhoid was noted . The scope was gradually withdrawn. Patient tolerated the procedure well and was taken to post anesthesia care unit in stable condition. Recommend repeat colonoscopy in 5 years
[2017-02-13 14:17] VITALS: PULSE 62
[2017-02-13 14:47] VITALS: BP 128/72
== END 2017-02-13 15:06 | disposition home or self-care (01) ==
LOC: ORWHC2ENDO 11:23
PROVIDERS: ATTEND Surgery
DX: K63.5 Polyp of colon (principal); R63.4 Abnormal weight loss; E05.00 Thyrotoxicosis with diffuse goiter without thyrotoxic crisis or storm; N39.0 Urinary tract infection, site not specified; R10.9 Unspecified abdominal pain; M19.90 Unspecified osteoarthritis, unspecified site; M79.7 Fibromyalgia; Z79.2 Long term (current) use of antibiotics; Z79.82 Long term (current) use of aspirin; Z79.3 Long term (current) use of hormonal contraceptives; Z79.899 Other long term (current) drug therapy; Z88.5 Allergy status to narcotic agent
CPT/HCPCS: 45385; J2405; J2001; J2704

== ENCOUNTER 2018-05-08 21:23 | Observation (INO) | payer MEDICARE ==
[2018-05-08] MEDS ORDERED: ONDANSETRON 4 MG/2 ML VIAL IVP STA (21:48)
[2018-05-08] MEDS ORDERED: SODIUM CHLORIDE 0.9% 1,000 ML IV STA (21:48)
[2018-05-08 22:03] LABS: Basophils % (A) 0 %; Eosinophils # (A) 0.2 k/uL (0-0.7); Eosinophils % (A) 2 %; HCT 45.3 % (34.0-46.0); HGB 14.9 gm/dL (11.4-16.0); Lymphocytes # (A) 0.9 k/uL (1.0-4.8); Lymphocytes % (A) 8 %; MCH 29.1 pg (25.0-35.0); MCHC 32.8 g/dL (31.0-37.0); MCV 88.9 fL (80.0-100.0); Mean Platelet Volume 6.9; Monocytes # (A) 0.3 k/uL (0-1.0); Monocytes % (A) 2 %; Neutrophils # (A) 10.1 k/uL (1.3-7.7); Neutrophils % (A) 88 %; Platelet Count 260 k/uL (150-450); RDW 13.5 % (11.5-15.5); WBC 11.6 k/uL (3.8-10.6)
[2018-05-08 22:11] LABS: ALT 31 U/L (9-52); AST 22 U/L (14-36); Albumin 4.4 g/dL (3.5-5.0); Alkaline Phosphatase 72 U/L (38-126); Amylase 42 U/L (30-110); Anion Gap 11 mmol/L; Blood Urea Nitrogen 14 mg/dL (7-17); Calcium 9.8 mg/dL (8.4-10.2); Carbon Dioxide 23 mmol/L (22-30); Chloride 108 mmol/L (98-107); Glucose 144 mg/dL (74-99); Lipase 75 U/L (23-300); Sodium 142 mmol/L (137-145); Total Bilirubin 0.7 mg/dL (0.2-1.3); Total Protein 7.6 g/dL (6.3-8.2)
[2018-05-08 22:15] LABS: INR 0.9 (<1.2); Partial Thromboplastin Time 22.1 sec (22.0-30.0); Prothrombin Time 9.5 sec (9.0-12.0)
[2018-05-08] MEDS ORDERED: SODIUM CHLORIDE 0.9% 1,000 ML IV ONE (22:20)
[2018-05-08 22:21] LABS: Creatine Kinase 25 U/L (30-135)
[2018-05-08 22:33] LABS: Creatine Kinase MB 0.6 ng/mL (0.0-2.4); Troponin I <0.012 ng/mL (0.000-0.034)
--- NOTE | 2018-05-08 22:44 | XR ---
EXAMINATION TYPE: XR chest 2V DATE OF EXAM: 05/08/2018 COMPARISON: 06/07/2016 HISTORY: Chest pain TECHNIQUE: Frontal and lateral views of the chest are obtained. FINDINGS: Heart is normal. Lungs are clear of consolidation. There is no heart failure. There are ch est leads. Bony thorax is intact. Diaphragm is normal. IMPRESSION: No active cardiopulmonary disease. Normal heart. No change.
--- NOTE | 2018-05-08 22:46 | XR ---
EXAMINATION TYPE: XR KUB DATE OF EXAM: 05/08/2018 COMPARISON: 06/06/2016 HISTORY: Abdominal pain TECHNIQUE: 2 views upright FINDINGS: There is no sign of intestinal obstruction or pneumoperitoneum. Fecal pattern is normal. Th ere is no sign of a mass. Lung bases are clear. There are no pathologic calcifications over the kidne ys. There are clips from cholecystectomy. There is mild lumbar dextroscoliosis. There are spondylotic changes in the lumbar spine. IMPRESSION: Nonacute abdomen. No change.
[2018-05-09] MEDS ORDERED: SODIUM CHLORIDE 0.9% 1,000 ML IV ONE (00:30)
--- NOTE | 2018-05-09 00:36 | ED ---
General Adult HPI - General Chief complaint: Chest Pain Stated complaint: chest discomfort Time Seen by Provider: 05/08/18 21:35 Source: patient, family, RN notes reviewed, old records reviewed Mode of arrival: ambulatory Limitations: no limitations - History of Present Illness Initial comments: 67 -year-old female presenting for evaluation of nausea vomiting and diarrhea. Symptoms began approximately 12 hours prior to arrival. She's had innumerable episodes of both vomiting and diarrhea as well as some mild epigastric pain. Patient's symptoms began several hours after eating a pastry which she believes may be the cause of her symptoms. No known sick contacts. She does report subjective fever and chills. Patient also reports some central chest tightness which she attributes to vomiting. No radiating chest pain. Vomiting is nonbloody nonbilious. No blood noted in the diarrhea. No recent travel. No recent antibiotics. - Related Data Home Medications Medication Instructions Recorded Confirmed Aspirin 81 mg PO DAILY 06/06/16 05/08/18 Cholecalciferol [Vitamin D3] 1,000 unit PO DAILY 06/06/16 05/08/18 Multivitamins, Thera [Multivitamin] 1 tab PO DAILY 06/06/16 05/08/18 Acetaminophen with Codeine 1 tab PO BID PRN 05/09/17 05/08/18 [Tylenol w/codeine #4] Levothyroxine Sodium 125 mcg PO DAILY 05/09/17 05/08/18 Aquiles Red Krill Oil 1 tab PO DAILY 05/09/17 05/08/18 Pregabalin [Lyrica] 100 mg PO BID PRN 05/09/17 05/08/18 Allergies Allergy/AdvReac Type Severity Reaction Status Date / Time morphine AdvReac Severe Nausea Verified 05/08/18 22:21 Review of Systems ROS Statement: Those systems with pertinent positive or pertinent negative responses have been documented in the HPI. ROS Other: All systems not noted in ROS Statement are negative. 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 History of Any Multi-Drug Resistant Organisms: None Reported Past Surgical History: Back Surgery, Section, Cholecystectomy Additional Past Surgical History / Comment(s): lumbar laminectomy, C-sections x2 , colonoscopy, bilateral eye surgery (muscle repair) as a child Past Anesthesia/Blood Transfusion Reactions: No Reported Reaction, Motion Sickness Past Psychological History: No Psychological Hx Reported Smoking Status: Former smoker Past Alcohol Use History: Rare Past Drug Use History: None Reported - Past Family History Father Family Medical History: Congestive Heart Failure (CHF), Diabetes Mellitus, Myocardial Infarction ([place]), Vascular Disorder Additional Family Medical History / Comment(s): Father of a [place] at the age of 71yrs. Mother Family Medical History: Thyroid Disorder Additional Family Medical History / Comment(s): Mother had Grave's disease and HDL B27+ (pt states it is a autoimmune disease). Mother also had cancer of the breast and lung and survived both due to early detection. She at the age of 90yrs. Sister(s) Family Medical History: Cancer Additional Family Medical History / Comment(s): BREAST & BONE CANCER General Exam Limitations: no limitations General appearance: alert, in no apparent distress Head exam: Present: atraumatic, normocephalic Eye exam: Present: normal appearance, PERRL ENT exam: Present: mucous membranes dry Neck exam: Present: normal inspection. Absent: tenderness, meningismus Respiratory exam: Present: normal lung sounds bilaterally. Absent: respiratory distress, wheezes Cardiovascular Exam: Present: regular rate, normal rhythm GI/Abdominal exam: Present: soft, tenderness (Mild epigastric tenderness). Absent: distended Extremities exam: Present: normal inspection, normal capillary refill. Absent: pedal edema Neurological exam: Present: alert, oriented X3, CN II-XII intact. Absent: motor sensory deficit Psychiatric exam: Present: normal affect, normal mood Skin exam: Present: warm, dry, intact. Absent: cyanosis, diaphoretic Course Vital Signs 05/08/18 05/08/18 21:26 22:47 Temperature 97.5 F L Pulse Rate 80 79 Respiratory 20 16 Rate Blood Pressure 137/88 110/68 O2 Sat by Pulse 100 100 Oximetry EKG Findings - EKG Comments: EKG Findings:: EKG: Normal sinus rhythm, low voltage, rate of 61, AL interval 196, QRS duration 80, QTC 446, no ST segment elevation or depression, T-wave inversion in V2 and V3. Medical Decision Making - Medical Decision Making 67-year-old female with nausea vomiting diarrhea. Patient's symptoms are consistent with gastroenteritis, likely viral or foodborne. Workup in the emergency department reveals normal CBC, normal CMP, normal electrolytes, lactic acid is elevated consistent with dehydration secondary to vomiting and diarrhea. This does respond to fluid hydration and is down trending in the emergency department. Patient remains symptomatic. She will be placed in observation for symptomatically treatment and fluid hydration. - Lab Data Result diagrams: 05/08/18 21:50 05/08/18 21:50 Lab Results 05/08/18 05/08/18 05/08/18 Range/Units 21:50 21:50 21:50 WBC 11.6 H (3.8-10.6) k/uL RBC 5.10 (3.80-5.40) m/uL Hgb 14.9 (11.4-16.0) gm/dL Hct 45.3 (34.0-46.0) % MCV 88.9 (80.0-100.0) fL MCH 29.1 (25.0-35.0) pg MCHC 32.8 (31.0-37.0) g/dL RDW 13.5 (11.5-15.5) % Plt Count 260 (150-450) k/uL Neutrophils % 88 % Lymphocytes % 8 % Monocytes % 2 % Eosinophils % 2 % Basophils % 0 % Neutrophils # 10.1 H (1.3-7.7) k/uL Lymphocytes # 0.9 L (1.0-4.8) k/uL Monocytes # 0.3 (0-1.0) k/uL Eosinophils # 0.2 (0-0.7) k/uL Basophils # 0.0 (0-0.2) k/uL PT (9.0-12.0) sec INR (<1.2) APTT (22.0-30.0) sec Sodium 142 (137-145) mmol/L Potassium 4.0 (3.5-5.1) mmol/L Chloride 108 H (98-107) mmol/L Carbon Dioxide 23 (22-30) mmol/L Anion Gap 11 mmol/L BUN 14 (7-17) mg/dL Creatinine 0.71 (0.52-1.04) mg/dL Est GFR (CKD-EPI)AfAm >90 (>60 ml/min/1.73 sqM) Est GFR (CKD-EPI)NonAf 89 (>60 ml/min/1.73 sqM) Glucose 144 H (74-99) mg/dL Plasma Lactic Acid Kirill (0.7-2.0) mmol/L Calcium 9.8 (8.4-10.2) mg/dL Total Bilirubin 0.7 (0.2-1.3) mg/dL AST 22 (14-36) U/L ALT 31 (9-52) U/L Alkaline Phosphatase 72 (38-126) U/L Total Creatine Kinase 25 L (30-135) U/L CK-MB (CK-2) 0.6 (0.0-2.4) ng/mL CK-MB (CK-2) Rel Index 2.4 Troponin I <0.012 (0.000-0.034) ng/mL Total Protein 7.6 (6.3-8.2) g/dL Albumin 4.4 (3.5-5.0) g/dL Amylase 42 (30-110) U/L Lipase 75 (23-300) U/L 05/08/18 05/08/18 05/09/18 Range/Units 21:50 21:50 00:03 WBC (3.8-10.6) k/uL RBC (3.80-5.40) m/uL Hgb (11.4-16.0) gm/dL Hct (34.0-46.0) % MCV (80.0-100.0) fL MCH (25.0-35.0) pg MCHC (31.0-37.0) g/dL RDW (11.5-15.5) % Plt Count (150-450) k/uL Neutrophils % % Lymphocytes % % Monocytes % % Eosinophils % % Basophils % % Neutrophils # (1.3-7.7) k/uL Lymphocytes # (1.0-4.8) k/uL Monocytes # (0-1.0) k/uL Eosinophils # (0-0.7) k/uL Basophils # (0-0.2) k/uL PT 9.5 (9.0-12.0) sec INR 0.9 (<1.2) APTT 22.1 (22.0-30.0) sec Sodium (137-145) mmol/L Potassium (3.5-5.1) mmol/L Chloride (98-107) mmol/L Carbon Dioxide (22-30) mmol/L Anion Gap mmol/L BUN (7-17) mg/dL Creatinine (0.52-1.04) mg/dL Est GFR (CKD-EPI)AfAm (>60 ml/min/1.73 sqM) Est GFR (CKD-EPI)NonAf (>60 ml/min/1.73 sqM) Glucose (74-99) mg/dL Plasma Lactic Acid Kirill 3.8 H* 2.1 H* (0.7-2.0) mmol/L Calcium (8.4-10.2) mg/dL Total Bilirubin (0.2-1.3) mg/dL AST (14-36) U/L ALT (9-52) U/L Alkaline Phosphatase (38-126) U/L Total Creatine Kinase (30-135) U/L CK-MB (CK-2) (0.0-2.4) ng/mL CK-MB (CK-2) Rel Index Troponin I (0.000-0.034) ng/mL Total Protein (6.3-8.2) g/dL Albumin (3.5-5.0) g/dL Amylase (30-110) U/L Lipase (23-300) U/L Disposition Clinical Impression: Nausea and vomiting, Diarrhea, Lactic acidosis Disposition: ADMITTED IP TO THIS [facility] Condition: Stable Is patient prescribed a controlled substance at d/c from ED?: No Referrals: Ash Salgado DO [Primary Care Provider] - 1-2 days Decision to Admit Reason: Admit from EC Decision Date: 05/09/18 Decision Time: 00:45
[2018-05-09] MEDS ORDERED: NALOXONE 0.4 MG/ML 1 ML VIAL IV PRN (00:40)
[2018-05-09] MEDS ORDERED: ONDANSETRON 4 MG/2 ML VIAL IVP PRN (00:40)
[2018-05-09] MEDS ORDERED: HYDROmorphone 1 MG/ML 1 ML SYRINGE IVP PRN (00:40)
[2018-05-09] MEDS ORDERED: KETOROLAC 30 MG/ML 1 ML VIAL IVP PRN (00:40)
[2018-05-09] MEDS ORDERED: ACETAMINOPHEN TAB 325 MG TAB PO PRN (00:40)
[2018-05-09] MEDS ORDERED: KETOROLAC 30 MG/ML 1 ML VIAL IVP STA (00:42)
[2018-05-09] MEDS ORDERED: ONDANSETRON 4 MG/2 ML VIAL IVP STA (00:42)
[2018-05-09 02:11] VITALS: BMI 28.5
[2018-05-09 02:13] LABS: Appearance,Urine Cloudy (Clear); Bacteria,Urine Moderate /hpf; Bilirubin,Urine Negative (Negative); Blood,Urine Negative (Negative); Color,Urine Yellow; Glucose,Urine (UA) Negative (Negative); Hyaline Casts,Urine 3 /lpf (0-2); Ketones,Urine Negative (Negative); Leukocyte Esterase,Urine Negative (Negative); Mucus,Urine Moderate /hpf; Nitrite,Urine Negative (Negative); Protein,Urine Trace (Negative); Specific Gravity,Urine 1.017 (1.001-1.035); Squamous Epithelial Cell,Urine 6 /hpf (0-4); Urobilinogen,Urine <2.0 mg/dL (<2.0); WBC,Urine 2 /hpf (0-5)
[2018-05-09] MEDS: SODIUM CHLORIDE 0.9% 1,000 ML IV SCH ×2 (02:35→10:16)
[2018-05-09 05:24] VITALS: RESP 20
[2018-05-09 05:52] VITALS: BP 109/73; PULSE 67; TEMP 98.7
--- NOTE | 2018-05-09 13:33 | P.HPIM ---
History of Present Illness H&P Date: 05/09/18 Chief Complaint: Nausea vomiting and diarrhea Mrs. Pritchett is a 67-year-old female with a past medical history of hypothyroidism, fibromyalgia, bilateral hip bursitis, scoliosis coming into the hospital with a chief complaint of nausea vomiting and diarrhea for 1 day. Patient states that she went to [employer] and tried some food samples. She ate [place] chocolate with cream on it. When she ate the cream she felt that based was little funny. After going home patient started to have nausea and threw up multiple times and she also had diarrhea. Patient denies having any fevers chills or rigors. No blood in her stool. Patient denies having any sick contacts. No recent use of antibiotics. No recent travel. Patient denies having any chest pain or palpitations. No difficulty in breathing or cough. No dysuria or hematuria. Review of Systems REVIEW OF SYSTEMS: PSYCH: No anxiety or depression NEURO:No c/o weakness of the extremties, No facial droop, No speech abnormalities. VASCULAR: Peripheral nervous system within the normal limits no edema HEMATOLOGIC: No history of easy bleeding and bruising . No recent infections . RESPIRATORY: No cough, No SOB, No chest discomfort. IMMUNE: No infections INTEGUMENT: no rashes OPHTHALMOLOGIC: No blurry vision and no eye discharge : No dysuria or hematuria ULTRASOUND MANAGER: No bleeding PV CARDIAC: No chest pain , shortness of breath , paroxysmal nocturnal dyspnea MUSCULOSKELETAL : No Aches or pains in the joints or muscles. 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 yeast bacterimia History of Any Multi-Drug Resistant Organisms: None Reported Past Surgical History: Back Surgery, Section, Cholecystectomy Additional Past Surgical History / Comment(s): lumbar laminectomy, C-sections x2 , colonoscopy, bilateral eye surgery (muscle repair) as a child Past Anesthesia/Blood Transfusion Reactions: No Reported Reaction, Motion Sickness Past Psychological History: No Psychological Hx Reported Smoking Status: Former smoker Past Alcohol Use History: Rare Additional Past Alcohol Use History / Comment(s): Pt states she started smoking in 1970 and quit in 1995. Smoked 1 ppd. Past Drug Use History: None Reported - Past Family History Father Family Medical History: Congestive Heart Failure (CHF), Diabetes Mellitus, Myocardial Infarction ([place]), Vascular Disorder Additional Family Medical History / Comment(s): Father of a [place] at the age of 71yrs. Mother Family Medical History: Thyroid Disorder Additional Family Medical History / Comment(s): Mother had Grave's disease and HDL B27+ (pt states it is a autoimmune disease). Mother also had cancer of the breast and lung and survived both due to early detection. She at the age of 90yrs. Sister(s) Family Medical History: Cancer Additional Family Medical History / Comment(s): BREAST & BONE CANCER Medications and Allergies Home Medications Medication Instructions Recorded Confirmed Type Cholecalciferol [Vitamin D3] 1,000 unit PO DAILY 06/06/16 05/09/18 History Multivitamins, Thera [Multivitamin] 1 tab PO DAILY 06/06/16 05/09/18 History Acetaminophen with Codeine 1 tab PO BID PRN 05/09/17 05/08/18 History [Tylenol w/codeine #4] Levothyroxine Sodium 125 mcg PO DAILY 05/09/17 05/09/18 History Aquiles Red Krill Oil 1 tab PO DAILY 05/09/17 05/09/18 History Medroxyprogesterone Acetate 150 mg IM QMONTH 05/09/18 05/09/18 History [Depo-Provera] Nitrofurantoin Monohyd/M-Cryst 100 mg PO DAILY 05/09/18 05/09/18 History [Macrobid] Allergies Allergy/AdvReac Type Severity Reaction Status Date / Time morphine AdvReac Severe Nausea Verified 05/08/18 22:21 Physical Exam Vitals: Vital Signs Temp Pulse Pulse Resp BP BP Pulse Ox 05/09/18 05:50 98.7 F 67 20 109/73 95 05/09/18 04:00 99.2 F 76 20 107/67 98 05/09/18 01:31 99.7 F H 61 18 90/67 99 05/08/18 22:47 79 16 110/68 100 05/08/18 21:26 97.5 F L 80 20 137/88 100 Intake and Output 05/08/18 05/09/1805/09/18 22:59 06:59 14:59 Output Total 600 Balance -600 Output: Urine 600 Other: # Voids 1 Weight 81.647 kg 82.5 kg GENERAL EXAM GEN. APPEARANCE: alert, in no apparent distress HEAD EXAM: atraumatic, normocephalic, normal inspection EYE EXAM: normal appearance, PERRL, EOMI. Absent: scleral icterus, conjunctival injection, periorbital swelling ENT EXAM: normal exam, mucous membranes moist NECK EXAM: normal inspection. Absent: tenderness, meningismus, full ROM, lymphadenopathy RESPIRATORY EXAM: normal lung sounds bilaterally. Absent: respiratory distress , wheezes, rales, rhonchi, stridor CARDIOVASCULAR EXAM: regular rate, normal rhythm, normal heart sounds. Absent : systolic murmur, diastolic murmur, rubs, gallop, clicks GI/ABDOMINAL EXAM: soft, normal bowel sounds. Absent: distended, tenderness, guarding, rebound, rigid EXTREMITIES EXAM: normal inspection, full ROM, normal capillary refill. Absent : tenderness, pedal edema, joint swelling, calf tenderness NEUROLOGICAL EXAM: alert, oriented X3, no focal neurological deficits on gross exam PSYCHIATRIC EXAM: normal affect, normal mood SKIN EXAM: warm, dry, intact, normal color. Absent: rash Results CBC & Chem 7: 05/08/18 21:50 05/08/18 21:50 Labs: Abnormal Lab Results - Last 24 Hours (Table) 05/08/18 05/08/18 05/08/18 Range/Units 21:50 21:50 21:50 WBC 11.6 H (3.8-10.6) k/uL Neutrophils # 10.1 H (1.3-7.7) k/uL Lymphocytes # 0.9 L (1.0-4.8) k/uL Chloride 108 H (98-107) mmol/L Glucose 144 H (74-99) mg/dL Plasma Lactic Acid Kirill (0.7-2.0) mmol/L Total Creatine Kinase 25 L (30-135) U/L Urine Appearance (Clear) Urine Protein (Negative) Ur Squamous Epith Cells (0-4) /hpf Urine Bacteria (None) /hpf Hyaline Casts (0-2) /lpf Urine Mucus (None) /hpf 05/08/18 05/09/18 05/09/18 Range/Units 21:50 00:03 02:00 WBC (3.8-10.6) k/uL Neutrophils # (1.3-7.7) k/uL Lymphocytes # (1.0-4.8) k/uL Chloride (98-107) mmol/L Glucose (74-99) mg/dL Plasma Lactic Acid Kirill 3.8 H* 2.1 H* (0.7-2.0) mmol/L Total Creatine Kinase (30-135) U/L Urine Appearance Cloudy H (Clear) Urine Protein Trace H (Negative) Ur Squamous Epith Cells 6 H (0-4) /hpf Urine Bacteria Moderate H (None) /hpf Hyaline Casts 3 H (0-2) /lpf Urine Mucus Moderate H (None) /hpf Microbiology - Last 24 Hours (Table) 05/09/18 02:00 Urine Culture - Preliminary Urine,Voided Thrombosis Risk Factor Assmnt - Choose All That Apply Any of the Below Risk Factors Present?: Yes Each Factor Represents 1 point: Obesity (BMI >25) Other Risk Factors: Yes Each Risk Factor Represents 2 Points: Age 61-74 years Other congenital or acquired thrombophilia - If yes, enter type in comment: No Thrombosis Risk Factor Assessment Total Risk Factor Score: 3 Thrombosis Risk Factor Assessment Level: Moderate Risk Assessment and Plan Assessment: ASSESSMENT Acute gastroenteritis Hypothyroidism Bilateral hip bursitis Ankylosing spondylitis Fibromyalgia Plan: In the ED patient was given IV fluids and antiemetics and she responded well. Since coming to the floor patient denies having any nausea vomiting or diarrhea. Patient did tolerate a clear liquid diet this morning. Patient requests that she wants to go home and she feels that she is back to normal. So patient is being discharged home to follow up with her PCP in 2-3 days.
--- NOTE | 2018-05-09 13:37 | P.DS ---
Providers Date of admission: 05/09/18 00:41 Expected date of discharge: 05/09/18 Attending physician: Marco A Harvey Primary care physician: Ash [facility] Course: Mrs. Pritchett is a 67-year-old female with a past medical history of hypothyroidism, fibromyalgia, bilateral hip bursitis, scoliosis coming into the hospital with a chief complaint of nausea vomiting and diarrhea for 1 day. Patient states that she went to [facility] and tried some food samples. She ate [place] chocolate with cream on it. When she ate the cream she felt that based was little funny. After going home patient started to have nausea and threw up multiple times and she also had diarrhea. Patient denies having any fevers chills or rigors. No blood in her stool. Patient denies having any sick contacts. No recent use of antibiotics. No recent travel. Patient denies having any chest pain or palpitations. No difficulty in breathing or cough. No dysuria or hematuria. In the ED patient was given IV fluids and antiemetics and she responded well. Since coming to the floor patient denies having any nausea vomiting or diarrhea. Patient did tolerate a clear liquid diet this morning. Patient requests that she wants to go home and she feels that she is back to normal. So patient is being discharged home to follow up with her PCP in 2-3 days. Patient is being sent home on Zofran to take when necessary for nausea and vomiting. DISCHARGE DIAGNOSIS Acute gastroenteritis Hypothyroidism Bilateral hip bursitis Ankylosing spondylitis Fibromyalgia Patient Condition at Discharge: Stable Plan - Discharge Summary New Discharge Prescriptions: New Ondansetron HCl [Zofran] 4 mg PO Q4-6H #8 tablet Continue Multivitamins, Thera [Multivitamin (formulary)] 1 tab PO DAILY Cholecalciferol [Vitamin D3] 1,000 unit PO DAILY Acetaminophen with Codeine [Tylenol w/codeine #4] 1 tab PO BID PRN PRN Reason: Pain Levothyroxine Sodium 125 mcg PO DAILY Aquiles Red Krill Oil 1 tab PO DAILY Medroxyprogesterone Acetate [Depo-Provera] 150 mg IM QMONTH Nitrofurantoin Monohyd/M-Cryst [Macrobid] 100 mg PO DAILY Discharge Medication List Cholecalciferol [Vitamin D3] 1,000 unit PO DAILY 06/06/16 [History] Multivitamins, Thera [Multivitamin (formulary)] 1 tab PO DAILY 06/06/16 [History ] Acetaminophen with Codeine [Tylenol w/codeine #4] 1 tab PO BID PRN 05/09/17 [ History] Levothyroxine Sodium 125 mcg PO DAILY 05/09/17 [History] Aquiles Red Krill Oil 1 tab PO DAILY 05/09/17 [History] Medroxyprogesterone Acetate [Depo-Provera] 150 mg IM QMONTH 05/09/18 [History] Nitrofurantoin Monohyd/M-Cryst [Macrobid] 100 mg PO DAILY 05/09/18 [History] Ondansetron HCl [Zofran] 4 mg PO Q4-6H #8 tablet 05/09/18 [Rx] Follow up Appointment(s)/Referral(s): Ash Salgado DO [Primary Care Provider] - 1-2 days (office closed. please call to schedule appointment) Patient Instructions/Handouts: Lactic Acidosis (GEN) Discharge Disposition: HOME SELF-CARE
== END 2018-05-09 14:25 | disposition home or self-care (01) ==
LOC: EC 21:23 → 4MS4W 05-09 00:41
PROVIDERS: ADMIT Hospitalist; ATTEND Hospitalist
DX: K52.9 Noninfective gastroenteritis and colitis, unspecified (principal); E03.9 Hypothyroidism, unspecified; M45.9 Ankylosing spondylitis of unspecified sites in spine; M70.71 Other bursitis of hip, right hip; M70.72 Other bursitis of hip, left hip; M79.7 Fibromyalgia; R07.89 Other chest pain; E87.2 Acidosis; Z87.01 Personal history of pneumonia (recurrent); E05.00 Thyrotoxicosis with diffuse goiter without thyrotoxic crisis or storm; Z87.440 Personal history of urinary (tract) infections; Z90.49 Acquired absence of other specified parts of digestive tract; Z87.891 Personal history of nicotine dependence; Z82.49 Family history of ischemic heart disease and other diseases of the circulatory system; Z83.3 Family history of diabetes mellitus; Z80.3 Family history of malignant neoplasm of breast; Z80.1 Family history of malignant neoplasm of trachea, bronchus and lung; Z80.8 Family history of malignant neoplasm of other organs or systems; Z79.890 Hormone replacement therapy; Z88.5 Allergy status to narcotic agent; E66.9 Obesity, unspecified; Z68.28 Body mass index [BMI] 28.0-28.9, adult; Z79.82 Long term (current) use of aspirin; Z79.899 Other long term (current) drug therapy
CPT/HCPCS: 96376; 96361 ×3; 96375; 96374; 99285; 36415 ×2; 80053; 82150; 82550; 82553; 83605 ×2; 83690; 84484 ×2; 85025; 85610; 85730; 81001; 87086; 71046; 74018; G0378; J2405 ×2; J1885

== ENCOUNTER 2018-10-31 13:56 | Observation (INO) | payer MEDICARE ==
[2018-10-31] MEDS ORDERED: ONDANSETRON 4 MG/2 ML VIAL IVP STA ×2 (14:59→16:08)
[2018-10-31] MEDS ORDERED: SODIUM CHLORIDE 0.9% 500 ML 500 ML IV STA (14:59)
[2018-10-31] MEDS ORDERED: SODIUM CHLORIDE 0.9% 1,000 ML IV STA (14:59)
[2018-10-31] MEDS ORDERED: FAMOTIDINE 20 MG/2 ML VIAL IV STA (14:59)
--- NOTE | 2018-10-31 15:01 | ED ---
General Adult HPI - General Chief complaint: Nausea/Vomiting/Diarrhea Stated complaint: nausea Time Seen by Provider: 10/31/18 13:58 Source: patient, family, RN notes reviewed Mode of arrival: wheelchair Limitations: no limitations - History of Present Illness Initial comments: Patient is a pleasant 68-year-old female presenting to the emergency Department with complaints of nausea vomiting. Onset of symptoms was this morning. Patient felt fine last night. Patient feels fatigued. Patient has nausea and several episodes of vomiting. Nausea persists. No constipation or diarrhea. No abdominal pain. No chest pain or dyspnea. No weakness. No history of similar symptoms previously. - Related Data Home Medications Medication Instructions Recorded Confirmed Cholecalciferol [Vitamin D3 (25 1,000 unit PO DAILY 06/06/16 10/31/18 Mcg = 1000 Iu)] Multivitamins, Thera [Multivitamin 1 tab PO DAILY 06/06/16 10/31/18 (formulary)] Acetaminophen with Codeine 1 tab PO BID PRN 05/09/17 10/31/18 [Tylenol w/codeine #4] Levothyroxine Sodium 125 mcg PO DAILY 05/09/17 10/31/18 Medroxyprogesterone Acetate 150 mg IM QMONTH 05/09/18 10/31/18 [Depo-Provera] Krill Oil 500 mg PO DAILY 10/31/18 10/31/18 Allergies Allergy/AdvReac Type Severity Reaction Status Date / Time morphine AdvReac Severe Nausea Verified 10/31/18 14:05 Review of Systems ROS Statement: Those systems with pertinent positive or pertinent negative responses have been documented in the HPI. ROS Other: All systems not noted in ROS Statement are negative. Constitutional: Denies: fever Eyes: Denies: eye pain ENT: Denies: ear pain Respiratory: Denies: cough, dyspnea Cardiovascular: Denies: chest pain Endocrine: Reports: fatigue Gastrointestinal: Reports: nausea, vomiting. 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 yeast bacterimia History of Any Multi-Drug Resistant Organisms: None Reported Past Surgical History: Back Surgery, Section, Cholecystectomy Additional Past Surgical History / Comment(s): lumbar laminectomy, C-sections x2, colonoscopy, bilateral eye surgery (muscle repair) as a child Past Anesthesia/Blood Transfusion Reactions: No Reported Reaction, Motion Sickness Past Psychological History: No Psychological Hx Reported Smoking Status: Former smoker Past Alcohol Use History: Rare Past Drug Use History: None Reported - Past Family History Father Family Medical History: Congestive Heart Failure (CHF), Diabetes Mellitus, Myocardial Infarction ([place]), Vascular Disorder Additional Family Medical History / Comment(s): Father of a [place] at the age of 71yrs. Mother Family Medical History: Thyroid Disorder Additional Family Medical History / Comment(s): Mother had Grave's disease and HDL B27+ (pt states it is a autoimmune disease). Mother also had cancer of the breast and lung and survived both due to early detection. She at the age of 90yrs. Sister(s) Family Medical History: Cancer Additional Family Medical History / Comment(s): BREAST & BONE CANCER General Exam Limitations: no limitations General appearance: alert, in no apparent distress Head exam: Present: atraumatic Eye exam: Present: normal appearance, PERRL ENT exam: Present: mucous membranes dry Neck exam: Present: normal inspection Respiratory exam: Present: normal lung sounds bilaterally Cardiovascular Exam: Present: regular rate, normal rhythm Expanded Peripheral pulses: 2+: Posterior Tibialis (R), Posterior Tibialis (L), Dorsalis Pedis (R), Dorsalis Pedis (L) GI/Abdominal exam: Present: soft. Absent: distended, tenderness, guarding, rebound, rigid, pulsatile mass Extremities exam: Present: normal inspection. Absent: pedal edema, calf tenderness Neurological exam: Present: alert Psychiatric exam: Present: normal affect, normal mood Skin exam: Present: normal color Course Vital Signs 10/31/18 10/31/18 13:58 15:16 Temperature 98.8 F Pulse Rate 48 L 51 L Respiratory 18 18 Rate Blood Pressure 156/89 148/90 O2 Sat by Pulse 99 97 Oximetry - Reevaluation(s) Reevaluation #1: 10/31/18 16:45 Shar was discussed with Dr. Castaneda, who will admit. EKG Findings - EKG Comments: EKG Findings:: Sinus bradycardia 48. First-degree AV block MA 218. QRS 94. QT 46. QTc 434. Normal axis. No QRS. No acute ST change. Medical Decision Making - Medical Decision Making Patient reevaluated and still complains of nausea despite several medications. Patient still does not feel well. Patient states she is starting to develop abdominal discomfort. Abdomen remained soft however there is mild to moderate tenderness in the epigastric region. Computed tomography scan will be ordered. Dr. Harvey has been paged for admission covering for Dr. Salgado. - Lab Data Result diagrams: 10/31/18 14:28 10/31/18 14:28 Lab Results 10/31/18 10/31/18 Range/Units 14:28 14:28 WBC 9.0 (3.8-10.6) k/uL RBC 5.15 (3.80-5.40) m/uL Hgb 14.6 (11.4-16.0) gm/dL Hct 46.3 H (34.0-46.0) % MCV 89.8 (80.0-100.0) fL MCH 28.4 (25.0-35.0) pg MCHC 31.7 (31.0-37.0) g/dL RDW 13.9 (11.5-15.5) % Plt Count 234 (150-450) k/uL Neutrophils % 77 % Lymphocytes % 15 % Monocytes % 4 % Eosinophils % 3 % Basophils % 1 % Neutrophils # 6.9 (1.3-7.7) k/uL Lymphocytes # 1.3 (1.0-4.8) k/uL Monocytes # 0.4 (0-1.0) k/uL Eosinophils # 0.3 (0-0.7) k/uL Basophils # 0.1 (0-0.2) k/uL Sodium 145 (137-145) mmol/L Potassium 4.3 (3.5-5.1) mmol/L Chloride 110 H (98-107) mmol/L Carbon Dioxide 25 (22-30) mmol/L Anion Gap 10 mmol/L BUN 16 (7-17) mg/dL Creatinine 0.62 (0.52-1.04) mg/dL Est GFR (CKD-EPI)AfAm >90 (>60 ml/min/1.73 sqM) Est GFR (CKD-EPI)NonAf >90 (>60 ml/min/1.73 sqM) Glucose 128 H (74-99) mg/dL Calcium 9.7 (8.4-10.2) mg/dL Magnesium 1.6 (1.6-2.3) mg/dL Total Bilirubin 0.6 (0.2-1.3) mg/dL AST 27 (14-36) U/L ALT 22 (9-52) U/L Alkaline Phosphatase 65 (38-126) U/L Total Protein 7.8 (6.3-8.2) g/dL Albumin 4.7 (3.5-5.0) g/dL Amylase 60 (30-110) U/L Lipase 91 (23-300) U/L Disposition Clinical Impression: Intractable vomiting, Abdominal pain Disposition: ADMITTED IP TO THIS HOSP Is patient prescribed a controlled substance at d/c from ED?: No Decision Time: 16:45
[2018-10-31 15:10] LABS: Basophils # (A) 0.1 k/uL (0-0.2); Basophils % (A) 1 %; Eosinophils # (A) 0.3 k/uL (0-0.7); Eosinophils % (A) 3 %; HCT 46.3 % (34.0-46.0); HGB 14.6 gm/dL (11.4-16.0); Lymphocytes # (A) 1.3 k/uL (1.0-4.8); Lymphocytes % (A) 15 %; MCH 28.4 pg (25.0-35.0); MCHC 31.7 g/dL (31.0-37.0); MCV 89.8 fL (80.0-100.0); Mean Platelet Volume 7.6; Monocytes # (A) 0.4 k/uL (0-1.0); Monocytes % (A) 4 %; Neutrophils # (A) 6.9 k/uL (1.3-7.7); Neutrophils % (A) 77 %; Platelet Count 234 k/uL (150-450); RBC 5.15 m/uL (3.80-5.40); RDW 13.9 % (11.5-15.5)
[2018-10-31 15:24] LABS: ALT 22 U/L (9-52); AST 27 U/L (14-36); Albumin 4.7 g/dL (3.5-5.0); Alkaline Phosphatase 65 U/L (38-126); Amylase 60 U/L (30-110); Anion Gap 10 mmol/L; Blood Urea Nitrogen 16 mg/dL (7-17); Calcium 9.7 mg/dL (8.4-10.2); Carbon Dioxide 25 mmol/L (22-30); Chloride 110 mmol/L (98-107); Glucose 128 mg/dL (74-99); Lipase 91 U/L (23-300); Magnesium 1.6 mg/dL (1.6-2.3); Potassium 4.3 mmol/L (3.5-5.1); Sodium 145 mmol/L (137-145); Total Bilirubin 0.6 mg/dL (0.2-1.3); Total Protein 7.8 g/dL (6.3-8.2)
[2018-10-31] MEDS ORDERED: NALOXONE 0.4 MG/ML 1 ML VIAL IV PRN (16:22)
[2018-10-31] MEDS ORDERED: HYDROmorphone 1 MG/ML 1 ML SYRINGE IVP PRN (16:22)
[2018-10-31] MEDS ORDERED: ONDANSETRON 4 MG/2 ML VIAL IVP PRN (16:22)
[2018-10-31] MEDS ORDERED: HYDROmorphone 1 MG/ML 1 ML SYRINGE IVP STA (16:27)
[2018-10-31 16:52] LABS: Creatine Kinase 44 U/L (30-135)
[2018-10-31] MEDS: SODIUM CHLORIDE 0.9% 1,000 ML IV SCH (16:54)
--- NOTE | 2018-10-31 17:00 | CT ---
EXAMINATION TYPE: CT abdomen pelvis wo con DATE OF EXAM: 10/31/2018 HISTORY: Abdominal pain and nausea. CT DLP: 606 mGycm. Automated Exposure Control for Dose Reduction was Utilized. TECHNIQUE: CT scan of the abdomen and pelvis is performed without oral or IV contrast. COMPARISON: CT abdomen pelvis December 07, 2016 FINDINGS: Within the limitations of a non-contrast study, the following observations are made. Exam suboptimal due to motion artifact degradation in the mid abdomen. LUNG BASES: No significant abnormality is appreciated. LIVER/GB: Cholecystectomy clips are redemonstrated. PANCREAS: No significant abnormality is seen. SPLEEN: No significant abnormality is seen. ADRENALS: No significant abnormality is seen. KIDNEYS: No renal stones or hydronephrosis is present bilaterally. There is roughly 3.0 cm simple issac earing cyst anteriorly lower pole level right kidney redemonstrated axial image 78. BOWEL: No significant abnormality is seen. GENITAL ORGANS: Anteverted uterus is seen. Inferior to this pessary type device in vaginal canal is r edemonstrated. LYMPH NODES: No greater than 1cm abdominal or pelvic lymph nodes are appreciated. OSSEOUS STRUCTURES: Slight dextroconvex scoliotic curvature with multilevel spurring and disc space n arrowing throughout the lumbar spine most prominent L4-L5 and L5-S1 levels is redemonstrated. OTHER: Stable tiny fat-containing umbilical hernia. IMPRESSION: No bowel obstruction. No acute or new finding is seen to account for patient's symptoms.
[2018-10-31 17:05] LABS: Creatine Kinase MB 0.9 ng/mL (0.0-2.4); Troponin I <0.012 ng/mL (0.000-0.034)
[2018-10-31 17:50] VITALS: BMI 29.2
[2018-10-31] MEDS ORDERED: TRIMETHOBENZAMIDE 100 MG/ML 2 ML VIAL IM PRN (18:08)
[2018-10-31 20:15] LABS: Appearance,Urine Clear (Clear); Bacteria,Urine Many /hpf; Bilirubin,Urine Negative (Negative); Blood,Urine Trace (Negative); Color,Urine Yellow; Glucose,Urine (UA) Negative (Negative); Hyaline Casts,Urine 5 /lpf (0-2); Ketones,Urine 1+ (Negative); Leukocyte Esterase,Urine Negative (Negative); Mucus,Urine Few /hpf; Nitrite,Urine Negative (Negative); PH, Urine 5.5 (5.0-8.0); Protein,Urine Negative (Negative); RBC,Urine 3 /hpf (0-5); Specific Gravity,Urine 1.017 (1.001-1.035); Squamous Epithelial Cell,Urine 2 /hpf (0-4); Urobilinogen,Urine <2.0 mg/dL (<2.0); WBC,Urine 1 /hpf (0-5)
[2018-11-01] MEDS: ONDANSETRON 4 MG/2 ML VIAL IVP PRN ×3 (01:35→09:26)
[2018-11-01] MEDS: HYDROmorphone 0.5 MG/0.5 ML SYRINGE IVP PRN ×3 (01:37→09:28)
[2018-11-01] MEDS: SODIUM CHLORIDE 0.9% 1,000 ML IV SCH ×2 (01:40→08:55)
[2018-11-01 02:49] VITALS: RESP 18
[2018-11-01 06:29] LABS: Basophils % (A) 0 %; Eosinophils % (A) 1 %; HCT 36.9 % (34.0-46.0); HGB 11.7 gm/dL (11.4-16.0); Lymphocytes # (A) 1.2 k/uL (1.0-4.8); Lymphocytes % (A) 14 %; MCH 28.7 pg (25.0-35.0); MCHC 31.7 g/dL (31.0-37.0); MCV 90.8 fL (80.0-100.0); Mean Platelet Volume 7.1; Monocytes # (A) 0.4 k/uL (0-1.0); Monocytes % (A) 5 %; Neutrophils # (A) 6.8 k/uL (1.3-7.7); Neutrophils % (A) 80 %; Platelet Count 190 k/uL (150-450); RBC 4.06 m/uL (3.80-5.40); RDW 13.3 % (11.5-15.5); WBC 8.5 k/uL (3.8-10.6)
[2018-11-01] MEDS ORDERED: LEVOTHYROXINE 125 MCG TAB PO SCH (06:30)
[2018-11-01 06:50] LABS: ALT 17 U/L (9-52); AST 19 U/L (14-36); Albumin 3.4 g/dL (3.5-5.0); Alkaline Phosphatase 44 U/L (38-126); Anion Gap 6 mmol/L; Blood Urea Nitrogen 10 mg/dL (7-17); Calcium 8.3 mg/dL (8.4-10.2); Carbon Dioxide 25 mmol/L (22-30); Chloride 110 mmol/L (98-107); Glucose 98 mg/dL (74-99); Sodium 141 mmol/L (137-145); Total Bilirubin 0.4 mg/dL (0.2-1.3); Total Protein 5.9 g/dL (6.3-8.2)
[2018-11-01 08:11] VITALS: BP 111/60; PULSE 63; TEMP 99.1
[2018-11-01] MEDS ORDERED: PANTOPRAZOLE 40 MG/10 ML VIAL IV SCH (09:00)
--- NOTE | 2018-11-01 12:02 | P.HPIM ---
History of Present Illness Patient is 68-year-old female was admitted for intractable nausea vomiting although patient doesn't have any of those symptoms when I evaluated the patient. Patient is already on Protonix at home patient was treated for gastroesophageal reflux disease in the past. Patient complains of migraine has symptoms she states is rigors and Dilaudid is only thing that helps her rigors. Patient doesn't have any fever chills. Patient apparently was complaining of abdominal pain she denied any abdominal pain to be CAT scan of the abdomen is essentially within normal limits. Patient is complaining of nausea but patient didn't drop there is no objective evidence of vomiting. Patient is definitely exhibiting opiate seeking behavior. My suspicion is extremely low that patient has migraine attack at this time. Dilaudid is not the treatment for her rigors, explained to the patient. Risks of opiate analogies C was explained to the patient as well. Patient doesn't need any further hospitalization. Patient will be asked to follow with primary care physician as an outpatient will be discharged today. Review of Systems REVIEW OF SYSTEMS: CONSTITUTIONAL: No fever, no malaise, no fatigue. HEENT: No recent visual problems or hearing problems. Denied any sore throat. CARDIOVASCULAR: No chest pain, orthopnea, PND, no palpitations, no syncope. PULMONARY: No shortness of breath, no cough, no hemoptysis. GASTROINTESTINAL: No diarrhea, no nausea, no vomiting, no abdominal pain. NEUROLOGICAL: No headaches, no weakness, no numbness. HEMATOLOGICAL: Denies any bleeding or petechiae. GENITOURINARY: Denies any burning micturition, frequency, or urgency. MUSCULOSKELETAL/RHEUMATOLOGICAL: Denies any joint pain, swelling, or any muscle pain. ENDOCRINE: Denies any polyuria or polydipsia. The rest of the 14-point review of systems is negative. 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 yeast bacterimia History of Any Multi-Drug Resistant Organisms: None Reported Past Surgical History: Back Surgery, Section, Cholecystectomy Additional Past Surgical History / Comment(s): lumbar laminectomy, C-sections x2, colonoscopy, bilateral eye surgery (muscle repair) as a child Past Anesthesia/Blood Transfusion Reactions: No Reported Reaction, Motion Sickness Past Psychological History: No Psychological Hx Reported Additional Psychological History / Comment(s): . Smoking Status: Former smoker Past Alcohol Use History: Rare Additional Past Alcohol Use History / Comment(s): Pt states she started smoking in 1970 and quit in 1995. Smoked 1 ppd. Past Drug Use History: None Reported - Past Family History Father Family Medical History: Congestive Heart Failure (CHF), Diabetes Mellitus, Myocardial Infarction ([place]), Vascular Disorder Additional Family Medical History / Comment(s): Father of a [place] at the age of 71yrs. Mother Family Medical History: Thyroid Disorder Additional Family Medical History / Comment(s): Mother had Grave's disease and HDL B27+ (pt states it is a autoimmune disease). Mother also had cancer of the breast and lung and survived both due to early detection. She at the age of 90yrs. Sister(s) Family Medical History: Cancer Additional Family Medical History / Comment(s): BREAST & BONE CANCER Medications and Allergies Home Medications Medication Instructions Recorded Confirmed Type Cholecalciferol [Vitamin D3 (25 1,000 unit PO DAILY 06/06/16 10/31/18 History Mcg = 1000 Iu)] Multivitamins, Thera [Multivitamin 1 tab PO DAILY 06/06/16 10/31/18 History (formulary)] Acetaminophen with Codeine 1 tab PO BID PRN 05/09/17 10/31/18 History [Tylenol w/codeine #4] Levothyroxine Sodium 125 mcg PO DAILY 05/09/17 10/31/18 History Medroxyprogesterone Acetate 150 mg IM QMONTH 05/09/18 10/31/18 History [Depo-Provera] Krill Oil 500 mg PO DAILY 10/31/18 10/31/18 History Allergies Allergy/AdvReac Type Severity Reaction Status Date / Time morphine AdvReac Severe Nausea Verified 10/31/18 14:05 Physical Exam Vitals: Vital Signs Temp Pulse Pulse Pulse Resp BP BP 11/01/18 08:00 99.1 F 63 18 111/60 11/01/18 03:53 18 11/01/18 00:00 18 10/31/18 23:52 98.8 F 85 17 96/57 06/01/19 20:00 18 10/31/18 17:30 97.7 F 60 18 135/71 10/31/18 16:52 54 L 18 165/85 10/31/18 16:50 97.7 F 60 20 135/71 10/31/18 15:16 51 L 18 148/90 10/31/18 13:58 98.8 F 48 L 18 156/89 Pulse Ox 11/01/18 08:00 98 11/01/18 03:53 11/01/18 00:00 10/31/18 23:52 96 10/31/18 20:00 10/31/18 17:30 100 10/31/18 16:52 100 10/31/18 16:50 100 10/31/18 15:16 97 10/31/18 13:58 99 Intake and Output 10/31/18 11/01/18 11/01/18 22:59 06:59 14:59 Intake Total 0 Balance 0 Intake: Oral 0 Other: Voiding Method Toilet # Voids 1 PHYSICAL EXAMINATION: GENERAL: The patient is alert and oriented x3, not in any acute distress. Well developed, well nourished. HEENT: Pupils are round and equally reacting to light. EOMI. No scleral icterus. No conjunctival pallor. Normocephalic, atraumatic. No pharyngeal erythema. No thyromegaly. CARDIOVASCULAR: S1 and S2 present. No murmurs, rubs, or gallops. PULMONARY: Chest is clear to auscultation, no wheezing or crackles. ABDOMEN: Soft, nontender, nondistended, normoactive bowel sounds. No palpable organomegaly. MUSCULOSKELETAL: No joint swelling or deformity. EXTREMITIES: No cyanosis, clubbing, or pedal edema. NEUROLOGICAL: Gross neurological examination did not reveal any focal deficits. SKIN: No rashes. Results CBC & Chem 7: 11/01/18 06:09 11/01/18 06:09 Labs: Abnormal Lab Results - Last 24 Hours (Table) 10/31/18 10/31/18 10/31/18 Range/Units 14:28 14:28 20:00 Hct 46.3 H (34.0-46.0) % Chloride 110 H (98-107) mmol/L Glucose 128 H (74-99) mg/dL Calcium (8.4-10.2) mg/dL Total Protein (6.3-8.2) g/dL Albumin (3.5-5.0) g/dL Urine Ketones 1+ H (Negative) Urine Blood Trace H (Negative) Urine Bacteria Many H (None) /hpf Hyaline Casts 5 H (0-2) /lpf Urine Mucus Few H (None) /hpf 11/01/18 Range/Units 06:09 Hct (34.0-46.0) % Chloride 110 H (98-107) mmol/L Glucose (74-99) mg/dL Calcium 8.3 L (8.4-10.2) mg/dL Total Protein 5.9 L (6.3-8.2) g/dL Albumin 3.4 L (3.5-5.0) g/dL Urine Ketones (Negative) Urine Blood (Negative) Urine Bacteria (None) /hpf Hyaline Casts (0-2) /lpf Urine Mucus (None) /hpf Thrombosis Risk Factor Assmnt - Choose All That Apply Any of the Below Risk Factors Present?: No Each Risk Factor Represents 2 Points: Age 61-74 years Thrombosis Risk Factor Assessment Total Risk Factor Score: 2 Thrombosis Risk Factor Assessment Level: Low Risk Assessment and Plan Plan: -Symptoms of nausea and vomiting in ER patient doesn't have any of those symptoms now patient is already on Protonix will be discharged on Protonix may have had gastroesophageal reflux disease. -History of migraine patient doesn't have any migraine attack at this time patient will follow with primary care physician as an outpatient next and #2 hypothyroidism -Fibromyalgia -Gastroesophageal reflux disease
--- NOTE | 2018-11-01 12:02 | P.DS ---
Providers Date of admission: 10/31/18 16:23 Attending physician: Ash Salgado Primary care physician: Ash Salgado Hospital Course: As mentioned in HPI Plan - Discharge Summary Discharge Rx Participant: No New Discharge Prescriptions: No Action Multivitamins, Thera [Multivitamin (formulary)] 1 tab PO DAILY Cholecalciferol [Vitamin D3 (25 Mcg = 1000 Iu)] 1,000 unit PO DAILY Acetaminophen with Codeine [Tylenol w/codeine #4] 1 tab PO BID PRN PRN Reason: Pain Levothyroxine Sodium 125 mcg PO DAILY Medroxyprogesterone Acetate [Depo-Provera] 150 mg IM QMONTH Krill Oil 500 mg PO DAILY Discharge Medication List Cholecalciferol [Vitamin D3 (25 Mcg = 1000 Iu)] 1,000 unit PO DAILY 06/06/16 [History] Multivitamins, Thera [Multivitamin (formulary)] 1 tab PO DAILY 06/06/16 [History] Acetaminophen with Codeine [Tylenol w/codeine #4] 1 tab PO BID PRN 05/09/17 [History] Levothyroxine Sodium 125 mcg PO DAILY 05/09/17 [History] Medroxyprogesterone Acetate [Depo-Provera] 150 mg IM QMONTH 05/09/18 [History] Krill Oil 500 mg PO DAILY 10/31/18 [History] Follow up Appointment(s)/Referral(s): Ash Salgado DO [Primary Care Provider] - 3 Days Discharge Disposition: HOME SELF-CARE
== END 2018-11-01 11:19 | disposition home or self-care (01) ==
LOC: EC 13:56 → 1SOBS 16:23
PROVIDERS: ADMIT Family Medicine; ATTEND Family Medicine
DX: R11.2 Nausea with vomiting, unspecified (principal); M79.7 Fibromyalgia; K21.9 Gastro-esophageal reflux disease without esophagitis; E03.9 Hypothyroidism, unspecified; E05.00 Thyrotoxicosis with diffuse goiter without thyrotoxic crisis or storm; R53.83 Other fatigue; Z76.5 Malingerer [conscious simulation]; F17.200 Nicotine dependence, unspecified, uncomplicated; Z79.890 Hormone replacement therapy; Z79.899 Other long term (current) drug therapy; Z88.5 Allergy status to narcotic agent; Z90.49 Acquired absence of other specified parts of digestive tract; Z87.440 Personal history of urinary (tract) infections; Z87.01 Personal history of pneumonia (recurrent); Z87.39 Personal history of other diseases of the musculoskeletal system and connective tissue; Z83.3 Family history of diabetes mellitus; Z82.49 Family history of ischemic heart disease and other diseases of the circulatory system; Z80.3 Family history of malignant neoplasm of breast; Z80.1 Family history of malignant neoplasm of trachea, bronchus and lung; Z83.49 Family history of other endocrine, nutritional and metabolic diseases; Z80.8 Family history of malignant neoplasm of other organs or systems; Z86.69 Personal history of other diseases of the nervous system and sense organs
CPT/HCPCS: 96372; 96375 ×2; 96376 ×2; 96361; 96374; 99285; 36415; 93005; 80053 ×2; 82150; 82550; 82553; 83690; 83735; 84484; 85025 ×2; 81001; 74176; G0378 ×2; J3250; J2405 ×2; J1170 ×2; C9113

== ENCOUNTER 2018-11-14 03:38 | Observation (INO) | payer MEDICARE ==
[2018-11-14] MEDS ORDERED: SODIUM CHLORIDE 0.9% 1,000 ML IV STA (04:48)
[2018-11-14] MEDS ORDERED: ONDANSETRON 4 MG/2 ML VIAL IVP STA (04:48)
[2018-11-14 05:12] LABS: Basophils # (A) 0.1 k/uL (0-0.2); Basophils % (A) 0 %; Eosinophils # (A) 0.2 k/uL (0-0.7); Eosinophils % (A) 1 %; Lymphocytes # (A) 1.9 k/uL (1.0-4.8); Lymphocytes % (A) 10 %; MCH 28.6 pg (25.0-35.0); MCHC 31.8 g/dL (31.0-37.0); MCV 89.9 fL (80.0-100.0); Mean Platelet Volume 7.2; Monocytes # (A) 0.5 k/uL (0-1.0); Monocytes % (A) 3 %; Neutrophils # (A) 15.3 k/uL (1.3-7.7); Neutrophils % (A) 85 %; Platelet Count 310 k/uL (150-450); RBC 5.79 m/uL (3.80-5.40); RDW 13.6 % (11.5-15.5); WBC 18.1 k/uL (3.8-10.6)
[2018-11-14 05:22] LABS: HGB 16.5 gm/dL (11.4-16.0)
--- NOTE | 2018-11-14 05:33 | ED ---
Nausea/Vomiting/Diarrhea HPI - General Chief complaint: Nausea/Vomiting/Diarrhea Stated complaint: Vomiting Time Seen by Provider: 11/14/18 03:56 Source: patient Mode of arrival: wheelchair Limitations: no limitations - History of Present Illness Initial comments: Patient is a 68-year-old female with a history of episodes of intractable nausea and vomiting. Patient presents the emergency department today with report of vomiting since approximately 8 PM. Patient reports she had multiple episodes of nonbloody nonbilious emesis. She reports she had a single episode of loose stools with no blood in it. Patient reports this is identical to what happened 2 weeks ago when she was hospitalized. Patient reports that her whole body feels achy she feels that she has the chills. She denies any fever, chest pain or shortness of breath. - Related Data Home Medications Medication Instructions Recorded Confirmed Cholecalciferol [Vitamin D3 (25 1,000 unit PO DAILY 06/06/16 10/31/18 Mcg = 1000 Iu)] Multivitamins, Thera [Multivitamin 1 tab PO DAILY 06/06/16 10/31/18 (formulary)] Acetaminophen with Codeine 1 tab PO BID PRN 05/09/17 10/31/18 [Tylenol w/codeine #4] Levothyroxine Sodium 125 mcg PO DAILY 05/09/17 10/31/18 Medroxyprogesterone Acetate 150 mg IM QMONTH 05/09/18 10/31/18 [Depo-Provera] Krill Oil 500 mg PO DAILY 10/31/18 10/31/18 Allergies Allergy/AdvReac Type Severity Reaction Status Date / Time morphine AdvReac Severe Nausea Verified 10/31/18 14:05 Review of Systems ROS Statement: Those systems with pertinent positive or pertinent negative responses have been documented in the HPI. ROS Other: All systems not noted in ROS Statement are negative. 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 yeast bacterimia History of Any Multi-Drug Resistant Organisms: None Reported Past Surgical History: Back Surgery, Section, Cholecystectomy Additional Past Surgical History / Comment(s): lumbar laminectomy, C-sections x2, colonoscopy, bilateral eye surgery (muscle repair) as a child Past Anesthesia/Blood Transfusion Reactions: No Reported Reaction, Motion Sickness Past Psychological History: No Psychological Hx Reported Smoking Status: Former smoker Past Alcohol Use History: Rare Past Drug Use History: None Reported - Past Family History Father Family Medical History: Congestive Heart Failure (CHF), Diabetes Mellitus, Myocardial Infarction ([place]), Vascular Disorder Additional Family Medical History / Comment(s): Father of a [place] at the age of 71yrs. Mother Family Medical History: Thyroid Disorder Additional Family Medical History / Comment(s): Mother had Grave's disease and HDL B27+ (pt states it is a autoimmune disease). Mother also had cancer of the breast and lung and survived both due to early detection. She at the age of 90yrs. Sister(s) Family Medical History: Cancer Additional Family Medical History / Comment(s): BREAST & BONE CANCER General Exam - General Exam Comments Initial Comments: Physical Exam GENERAL: Patient is well-developed and well-nourished. Appears dehydrated HENT: Normocephalic, Atraumatic. Dry mucous membranes EYES: PERRL, EOMI PULMONARY: Unlabored respirations. No audible rales rhonchi or wheezing was noted. CARDIOVASCULAR: There is a regular rate and rhythm without any murmurs gallops or rubs. ABDOMEN: Soft and nontender with normal bowel sounds. SKIN: Skin is clear with no lesions or rashes and otherwise unremarkable. : Deferred NEUROLOGIC: Patient is alert and oriented x3. Moving all extremities spontaneously MUSCULOSKELETAL: Normal extremities with adequate strength and full range of motion. No lower extremity swelling or edema. No calf tenderness. PSYCHIATRIC: Anxious Limitations: no limitations Course Vital Signs 11/14/18 03:43 Temperature 98.7 F Pulse Rate 99 Respiratory 20 Rate O2 Sat by Pulse 100 Oximetry Medical Decision Making - Medical Decision Making Patient was seen and evaluated history is obtained from the patient and review of medical records that since 68-year-old female with episodes of intractable nausea and vomiting in the past presenting today with 6 hours of nausea and vomiting. Patient has had one loose stool. Labs were ordered, and resulted with leukocytosis, elevation in the hemoglobin consistent with hemoconcentration, elevation and BUN and creatinine which indicates prerenal azotemia. The patient was reevaluated, nausea improved after Zofran she's had no further episodes of vomiting but still feels unwell. Given the patient's history of advanced age we will plan to place the patient in observation for further evaluation of nausea vomiting and dehydration. - Lab Data Result diagrams: 11/14/18 04:45 11/14/18 04:45 Lab Results 11/14/18 11/14/18 Range/Units 04:45 04:45 WBC 18.1 H (3.8-10.6) k/uL RBC 5.79 H (3.80-5.40) m/uL Hgb 16.5 H D (11.4-16.0) gm/dL Hct 52.0 H (34.0-46.0) % MCV 89.9 (80.0-100.0) fL MCH 28.6 (25.0-35.0) pg MCHC 31.8 (31.0-37.0) g/dL RDW 13.6 (11.5-15.5) % Plt Count 310 (150-450) k/uL Neutrophils % 85 % Lymphocytes % 10 % Monocytes % 3 % Eosinophils % 1 % Basophils % 0 % Neutrophils # 15.3 H (1.3-7.7) k/uL Lymphocytes # 1.9 (1.0-4.8) k/uL Monocytes # 0.5 (0-1.0) k/uL Eosinophils # 0.2 (0-0.7) k/uL Basophils # 0.1 (0-0.2) k/uL Sodium 142 (137-145) mmol/L Potassium 4.5 (3.5-5.1) mmol/L Chloride 107 (98-107) mmol/L Carbon Dioxide 16 L (22-30) mmol/L Anion Gap 19 mmol/L BUN 21 H (7-17) mg/dL Creatinine 1.12 H (0.52-1.04) mg/dL Est GFR (CKD-EPI)AfAm 58 (>60 ml/min/1.73 sqM) Est GFR (CKD-EPI)NonAf 51 (>60 ml/min/1.73 sqM) Glucose 196 H (74-99) mg/dL Calcium 10.7 H (8.4-10.2) mg/dL Total Bilirubin 1.4 H (0.2-1.3) mg/dL AST 27 (14-36) U/L ALT 18 (9-52) U/L Alkaline Phosphatase 76 (38-126) U/L Total Protein 9.3 H (6.3-8.2) g/dL Albumin 5.4 H (3.5-5.0) g/dL Lipase 112 (23-300) U/L Disposition Clinical Impression: Dehydration, Intractable vomiting, Epigastric pain, Diarrhea Disposition: ADMITTED IP TO THIS [facility] Condition: Stable Referrals: Ash Salgado DO [Primary Care Provider] - 1-2 days
[2018-11-14 05:41] LABS: Albumin 5.4 g/dL (3.5-5.0); Calcium 10.7 mg/dL (8.4-10.2); Potassium 4.5 mmol/L (3.5-5.1); Total Bilirubin 1.4 mg/dL (0.2-1.3); Total Protein 9.3 g/dL (6.3-8.2)
[2018-11-14] MEDS ORDERED: ONDANSETRON 4 MG/2 ML VIAL IVP PRN (06:36)
[2018-11-14] MEDS ORDERED: NALOXONE 0.4 MG/ML 1 ML VIAL IV PRN (06:36)
[2018-11-14] MEDS ORDERED: METOCLOPRAMIDE 5 MG/ML 2 ML VIAL IVP STA (06:38)
[2018-11-14] MEDS ORDERED: diphenhydrAMINE 50 MG/ML 1 ML VIAL IVP STA (06:38)
[2018-11-14] MEDS: SODIUM CHLORIDE 0.9% 1,000 ML IV SCH ×3 (06:42→23:56)
[2018-11-14] MEDS ORDERED: Acetaminophen-Codeine 300-30mg TAB PO PRN (06:47)
[2018-11-14] MEDS: LORazepam 2 MG/ML INJ IV PRN ×2 (06:53→12:19)
--- NOTE | 2018-11-14 07:06 | XR ---
EXAMINATION TYPE: XR KUB , 2 VIEWS DATE OF EXAM ORDERED: 11/14/2018 HISTORY: Pain, vomiting. COMPARISON: Previous study dated 05/08/2018. FINDINGS: The lung bases are clear. Within the abdomen, the gallbladder has been removed. There is a moderate dextroscoliosis. There is n o evidence of obstruction or free air. There are scattered air-fluid levels. There are phleboliths wi thin the pelvis. IMPRESSION: FINDINGS MOST SUGGESTIVE OF MILD ILEUS.
[2018-11-14] MEDS: LEVOTHYROXINE 125 MCG TAB PO SCH (09:21)
[2018-11-14 09:27] VITALS: RESP 18
[2018-11-14] MEDS: PANTOPRAZOLE 40 MG/10 ML VIAL IV SCH (09:38)
[2018-11-14] MEDS ORDERED: DOCUSATE 100 MG CAP PO PRN (12:43)
--- NOTE | 2018-11-14 16:18 | XR ---
EXAMINATION TYPE: XR Hip Complete LT DATE OF EXAM: 11/14/2018 COMPARISON: NONE HISTORY: 68-year-old female with fall and pain TECHNIQUE: 2 views FINDINGS: Osteopenia. There is moderate degenerative change at the hip. The patient's hip is abducted assessment on the AP view. A repeat conventional AP view with appropriate slight internal rotation i s recommended. No evident displaced fracture on the frog-leg lateral view. IMPRESSION: Suboptimal positioning on the AP view. There is at least moderate underlying OA. No obvious displaced fracture on the frog-leg lateral view. The AP view can be repeated with conventional positioning inc luding slight internal rotation.
[2018-11-14] MEDS: HEPARIN SODIUM,PORCINE 5,000 UNIT/ML 1 ML VIAL SQ SCH ×2 (16:27→23:56)
[2018-11-14] MEDS ORDERED: KETOROLAC 30 MG/ML 1 ML VIAL IVP STA (17:28)
[2018-11-14] MEDS ORDERED: KETOROLAC 30 MG/ML 1 ML VIAL IM STA (17:38)
--- NOTE | 2018-11-14 18:29 | XR ---
EXAMINATION TYPE: XR lumbosacral spine min 4V DATE OF EXAM: 11/14/2018 COMPARISON: NONE HISTORY: 68-year-old female pain after recent fall TECHNIQUE: 5 views FINDINGS: Degenerated dextroconvex scoliosis. Cholecystectomy clips. Vertebral body heights are preserved allow ing allowing for limitations due to patient's curvature. Grade 1 retrolisthesis at L2-L3 and L3-L4. M oderate to advanced degenerative disc disease L5-S1 and mild to moderate endplate spondylosis through out. Hypertrophic facet arthropathy also present throughout. IMPRESSION: 1. Degenerated dextroconvex scoliosis. Hypertrophic facet arthropathy throughout. 2. Endplate spondylosis throughout, more moderately advanced degenerative disc disease at L5-S1. 3. Grade 1 retrolisthesis at L2-L3 and L3-L4. No vertebral compression collapse identified.
--- NOTE | 2018-11-14 18:32 | XR ---
EXAMINATION TYPE: XR pelvis AP view DATE OF EXAM: 11/14/2018 COMPARISON: Left hip same day HISTORY: 68-year-old female pain and recent fall TECHNIQUE: AP view FINDINGS: Moderate degenerative change of the left hip and mild of the right hip. SI joints appear symmetric an d intact. Smooth delineation to the arcuate lines of the sacrum. No acute fracture seen. IMPRESSION: Moderate left and mild right hip osteoarthrosis. No acute osseous abnormality seen. Refer to separate addended left hip report.
[2018-11-14 19:33] LABS: Appearance,Urine Cloudy (Clear); Bacteria,Urine Occasional /hpf; Bilirubin,Urine Negative (Negative); Blood,Urine Negative (Negative); Color,Urine Yellow; Glucose,Urine (UA) Negative (Negative); Ketones,Urine Trace (Negative); Leukocyte Esterase,Urine Negative (Negative); Mucus,Urine Many /hpf; Nitrite,Urine Negative (Negative); Protein,Urine 1+ (Negative); Specific Gravity,Urine 1.019 (1.001-1.035); Squamous Epithelial Cell,Urine 5 /hpf (0-4); Urobilinogen,Urine <2.0 mg/dL (<2.0)
--- NOTE | 2018-11-14 23:34 | P.HPIM ---
History of Present Illness H&P Date: 11/14/18 Chief Complaint: Nausea vomiting and diarrhea ] Patient is a 68-year-old female with a known history of hypothyroidism, fibromyalgia, are sure that it is and ankylosing spondylosis, scoliosis and previous history of smoking came to ER with complaints of intractable nausea vom iting and episodes of diarrhea. Patient has been vomiting since 8 PM yesterday night with multiple nonbloody nonbilious emesis. Unable to tolerate oral food. Patient also had 1 episode of loose stools. Denied any hematemesis or melena. No complaints of fever. Patient was hospitalized about 2 weeks ago with similar complaints and did improve with symptomatic management and IV fluids. Patient was able to work outside and paint her patio and deck after that. Denied any complaints of chest pain or shortness of breath. No cough or sputum production. No dysuria or hematuria. KUB x-ray showed possible ileus. Patient says that IV Dilaudid help her calm down in the ER and is requesting more IV pain medications. Review of Systems Constitutional: Patient denies any fever or chills . No generalized weakness or weight loss. Abdomen: Does have nausea vomiting and 1 episode of diarrhea. Mild epigastric abdominal pain. Cardiovascular: Patient denies any chest pain or short of breath no palpitations. Respiratory: patient denied any cough is from production. No shortness of breath Neurologic: Patient denied any numbness or tingling headache. Musculoskeletal: Patient denies any complaints of joint swelling or deformity. Skin: Negative Psychiatric: Anxious Endocrine: No heat or cold intolerance. No recent weight gain. Genitourinary: No dysuria or hematuria. 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 yeast bacterimia History of Any Multi-Drug Resistant Organisms: None Reported Past Surgical History: Back Surgery, Section, Cholecystectomy Additional Past Surgical History / Comment(s): lumbar laminectomy, C-sections x2, colonoscopy, bilateral eye surgery (muscle repair) as a child Past Anesthesia/Blood Transfusion Reactions: No Reported Reaction, Motion Sickness Past Psychological History: No Psychological Hx Reported Additional Psychological History / Comment(s): . Smoking Status: Former smoker Past Alcohol Use History: Rare Additional Past Alcohol Use History / Comment(s): Pt states she started smoking in 1970 and quit in 1995. Smoked 1 ppd. Past Drug Use History: None Reported - Past Family History Father Family Medical History: Congestive Heart Failure (CHF), Diabetes Mellitus, My ocardial Infarction (AR), Vascular Disorder Additional Family Medical History / Comment(s): Father of a AR at the age of 71yrs. Mother Family Medical History: Thyroid Disorder Additional Family Medical History / Comment(s): Mother had Grave's disease and HDL B27+ (pt states it is a autoimmune disease). Mother also had cancer of the breast and lung and survived both due to early detection. She at the age of 90yrs. Sister(s) Family Medical History: Cancer Additional Family Medical History / Comment(s): BREAST & BONE CANCER Medications and Allergies Home Medications Medication Instructions Recorded Confirmed Type Cholecalciferol [Vitamin D3 (25 1,000 unit PO DAILY 06/06/16 11/14/18 History Mcg = 1000 Iu)] Multivitamins, Thera [Multivitamin 1 tab PO DAILY 06/06/16 11/14/18 History (formulary)] Acetaminophen with Codeine 1 tab PO BID PRN 05/09/17 11/14/18 History [Tylenol w/codeine #4] Levothyroxine Sodium 125 mcg PO DAILY 05/09/17 11/14/18 History Medroxyprogesterone Acetate 150 mg IM Q30D 05/09/18 11/14/18 History [Depo-Provera] Krill Oil 500 mg PO DAILY 10/31/18 11/14/18 History Allergies Allergy/AdvReac Type Severity Reaction Status Date / Time morphine AdvReac Severe Nausea Verified 11/14/18 10:27 Physical Exam Vitals: Vital Signs Temp Pulse Pulse Resp BP BP BP 11/14/18 12:08 99.4 F 94 18 131/92 11/14/18 07:44 97.4 F L 79 18 148/72 11/14/18 06:48 78 16 158/86 11/14/18 03:43 98.7 F 99 20 Pulse Ox 06/15/19 12:08 99 11/14/18 07:44 99 11/14/18 06:48 11/14/18 03:43 100 Intake and Output 11/14/18 11/14/18 11/14/18 06:59 14:59 22:59 Other: Weight 62.596 kg PHYSICAL EXAMINATION: Patient is lying in the bed comfortably, no acute distress, awake alert and o riented.. HEENT: Normocephalic. Neck is supple. Pupils reactive. Nostrils clear. Oral cavity is moist. Ears reveal no drainage. Neck reveals no JVD, carotid bruits, or thyromegaly. CHEST EXAMINATION: Trachea is central. Symmetrical expansion. Lung monet clear to auscultation and percussion. CARDIAC: Normal S1, S2 with no gallops. No murmurs ABDOMEN: Soft. Mild epigastric tenderness. Bowel sounds normal. No organomegaly. No abdominal bruits. Extremities: reveal no edema. No clubbing or cyanosis Neurologically awake, alert, oriented x3 with well-coordinated movements. No focal deficits noted Skin: No rash or skin lesions. Psychiatric: Coperative. Nonsuicidal. Anxious. Musculoskeletal: No joint swelling or deformity. Normal range of motion. Left hip tenderness over the trochanteric area. Results CBC & Chem 7: 11/14/18 04:45 11/14/18 04:45 Labs: Abnormal Lab Results - Last 24 Hours (Table) 11/14/18 11/14/18 Range/Units 04:45 04:45 WBC 18.1 H (3.8-10.6) k/uL RBC 5.79 H (3.80-5.40) m/uL Hgb 16.5 H D (11.4-16.0) gm/dL Hct 52.0 H (34.0-46.0) % Neutrophils # 15.3 H (1.3-7.7) k/uL Carbon Dioxide 16 L (22-30) mmol/L BUN 21 H (7-17) mg/dL Creatinine 1.12 H (0.52-1.04) mg/dL Glucose 196 H (74-99) mg/dL Calcium 10.7 H (8.4-10.2) mg/dL Total Bilirubin 1.4 H (0.2-1.3) mg/dL Total Protein 9.3 H (6.3-8.2) g/dL Albumin 5.4 H (3.5-5.0) g/dL Thrombosis Risk Factor Assmnt - DVT/VTE Prophylaxis DVT/VTE Prophylaxis: Pharmacologic Prophylaxis ordered - Choose All That Apply Any of the Below Risk Factors Present?: Yes Other Risk Factors: Yes Each Risk Factor Represents 2 Points: Age 61-74 years Other congenital or acquired thrombophilia - If yes, enter type in comment: No Thrombosis Risk Factor Assessment Total Risk Factor Score: 2 Thrombosis Risk Factor Assessment Level: Low Risk Assessment and Plan Assessment: Intractable nausea vomiting and diarrhea. Possible acute gastroenteritis Ileus Dehydration and altered depletion Acute kidney injury likely prerenal. Leukocytosis. No evidence of infection noted. Mild hypercalcemia due to dehydration Left hip pain status post fall from the bed. No fractures noted In the x-rays. Scoliosis Ankylosing spondylosis Hypothyroidism Fibromyalgia Previous history of UTIs Plan: Patient will be continued on IV hydration. Symptomatic management for nausea vomiting and nothing by mouth until symptomatic improvement. Continue the home medications and pain management with Tylenol No. 3. We'll try to avoid IV narcotic pain medications. Further recommendations based on the clinical course. Time with Patient: Greater than 30
[2018-11-15] MEDS: LEVOTHYROXINE 125 MCG TAB PO SCH (05:13)
[2018-11-15 06:19] VITALS: BP 130/71; PULSE 64; TEMP 98
[2018-11-15 08:18] LABS: ALT 18 U/L (9-52); AST 20 U/L (14-36); African American GFR (CKD) >90 (>60 ml/min/1.73 sqM); Albumin 3.8 g/dL (3.5-5.0); Alkaline Phosphatase 50 U/L (38-126); Anion Gap 6 mmol/L; Blood Urea Nitrogen 14 mg/dL (7-17); Carbon Dioxide 23 mmol/L (22-30); Chloride 112 mmol/L (98-107); Glucose 101 mg/dL (74-99); Potassium 4.6 mmol/L (3.5-5.1); Sodium 141 mmol/L (137-145); Total Protein 6.5 g/dL (6.3-8.2)
[2018-11-15] MEDS: PANTOPRAZOLE 40 MG/10 ML VIAL IV SCH (08:20)
[2018-11-15] MEDS: SODIUM CHLORIDE 0.9% 1,000 ML IV SCH ×2 (08:20→13:28)
[2018-11-15] MEDS: HEPARIN SODIUM,PORCINE 5,000 UNIT/ML 1 ML VIAL SQ SCH (08:20)
[2018-11-15 08:37] LABS: Basophils % (A) 0 %; Eosinophils # (A) 0.1 k/uL (0-0.7); Eosinophils % (A) 1 %; HCT 40.7 % (34.0-46.0); Lymphocytes # (A) 1.9 k/uL (1.0-4.8); Lymphocytes % (A) 20 %; MCH 29.6 pg (25.0-35.0); MCHC 32.5 g/dL (31.0-37.0); MCV 91.1 fL (80.0-100.0); Mean Platelet Volume 7.8; Monocytes # (A) 0.5 k/uL (0-1.0); Monocytes % (A) 5 %; Neutrophils % (A) 73 %; Platelet Count 172 k/uL (150-450); RBC 4.47 m/uL (3.80-5.40); RDW 14.6 % (11.5-15.5); WBC 9.5 k/uL (3.8-10.6)
[2018-11-15 08:42] LABS: HGB 13.2 gm/dL (11.4-16.0)
== END 2018-11-15 13:46 | disposition home or self-care (01) ==
LOC: EC 03:38 → 4MS4W 06:36
PROVIDERS: ADMIT Hospitalist; ATTEND Hospitalist
DX: R11.2 Nausea with vomiting, unspecified (principal); R19.7 Diarrhea, unspecified; E86.0 Dehydration; R68.83 Chills (without fever); K56.7 Ileus, unspecified; R10.13 Epigastric pain; E03.9 Hypothyroidism, unspecified; E05.00 Thyrotoxicosis with diffuse goiter without thyrotoxic crisis or storm; E83.52 Hypercalcemia; M79.7 Fibromyalgia; M25.552 Pain in left hip; D72.829 Elevated white blood cell count, unspecified; R79.89 Other specified abnormal findings of blood chemistry; N17.9 Acute kidney failure, unspecified; M45.9 Ankylosing spondylitis of unspecified sites in spine; M41.9 Scoliosis, unspecified; Z87.440 Personal history of urinary (tract) infections; Z79.2 Long term (current) use of antibiotics; Z79.890 Hormone replacement therapy; Z79.3 Long term (current) use of hormonal contraceptives; Z87.01 Personal history of pneumonia (recurrent); Z87.891 Personal history of nicotine dependence; Z90.49 Acquired absence of other specified parts of digestive tract; Z88.5 Allergy status to narcotic agent; Z82.49 Family history of ischemic heart disease and other diseases of the circulatory system; Z83.3 Family history of diabetes mellitus; Z80.3 Family history of malignant neoplasm of breast; Z80.1 Family history of malignant neoplasm of trachea, bronchus and lung; Z80.8 Family history of malignant neoplasm of other organs or systems; W06.XXXA Fall from bed, initial encounter
CPT/HCPCS: 96376 ×2; 96361 ×3; 96375 ×2; 96372 ×2; 96374; 99285; 36415; 80053 ×2; 83690; 85025 ×2; 81001; 72110; 72170; 73502; 74018; G0378 ×2; J2060; J1200; J1644 ×2; J2765; J2405; J1885; C9113 ×2

== ENCOUNTER → 2018-11-20 | Outpatient (CLI) | payer MEDICARE ==
[2018-11-20 11:00] LABS: Basophils # (A) 0.1 k/uL (0-0.2); Basophils % (A) 1 %; Eosinophils # (A) 0.2 k/uL (0-0.7); Eosinophils % (A) 2 %; HCT 42.9 % (34.0-46.0); Lymphocytes # (A) 1.8 k/uL (1.0-4.8); Lymphocytes % (A) 17 %; MCH 29.6 pg (25.0-35.0); MCHC 32.6 g/dL (31.0-37.0); Mean Platelet Volume 7.9; Monocytes # (A) 0.5 k/uL (0-1.0); Monocytes % (A) 4 %; Neutrophils # (A) 7.7 k/uL (1.3-7.7); Neutrophils % (A) 74 %; Platelet Count 189 k/uL (150-450); RBC 4.71 m/uL (3.80-5.40); RDW 13.4 % (11.5-15.5); WBC 10.4 k/uL (3.8-10.6)
[2018-11-20 17:38] LABS: African American GFR (CKD) 76.1 (60.0-200.0); Albumin 4.6 g/dL (3.80-4.90); Albumin/Globulin Ratio 2.09 (1.60-3.17); Anion Gap 10.1 mmol/L (4.00-12.00); BUN/Creat Ratio 21.11 Ratio (12.00-20.00); Calcium 9.5 mg/dL (8.7-10.3); Carbon Dioxide 26.9 mmol/L (21.6-31.8); Globulin 2.2 g/dL (1.6-3.3); Total Bilirubin 0.6 mg/dL (0.2-1.2); Total Protein 6.8 g/dL (6.2-8.2)
== END | disposition home or self-care (01) ==
LOC: LABWHC1 10:31
PROVIDERS: ATTEND Psychiatry & Neurology Neurology
DX: E55.9 Vitamin D deficiency, unspecified (principal); R41.3 Other amnesia
CPT/HCPCS: 36415; 80053; 82306; 82607; 84207; 85025

== ENCOUNTER → 2020-01-04 | Outpatient (CLI) | payer MEDICARE | END | disposition home or self-care (01) | LOC: LABWHC1 13:45 | PROVIDERS: ATTEND Family Medicine | DX: R05 Cough (principal); R50.9 Fever, unspecified; R06.02 Shortness of breath | CPT/HCPCS: U0003; C9803 ==

== ENCOUNTER → 2020-10-16 | Outpatient (CLI) | payer MEDICARE ==
[2020-10-16 17:02] LABS: Basophils % (A) 1 %; Eosinophils # (A) 0.3 k/uL (0-0.7); Eosinophils % (A) 4 %; HCT 38.6 % (34.0-46.0); HGB 12.9 gm/dL (11.4-16.0); Lymphocytes # (A) 2.1 k/uL (1.0-4.8); Lymphocytes % (A) 31 %; MCH 30.3 pg (25.0-35.0); MCHC 33.3 g/dL (31.0-37.0); MCV 91.1 fL (80.0-100.0); Mean Platelet Volume 6.9; Monocytes # (A) 0.3 k/uL (0-1.0); Monocytes % (A) 5 %; Neutrophils # (A) 3.9 k/uL (1.3-7.7); Neutrophils % (A) 59 %; Platelet Count 196 k/uL (150-450); RBC 4.24 m/uL (3.80-5.40); RDW 12.7 % (11.5-15.5); WBC 6.6 k/uL (3.8-10.6)
[2020-10-16 17:11] LABS: African American GFR (CKD) >90 (>60 ml/min/1.73 sqM); Anion Gap 7 mmol/L; Blood Urea Nitrogen 18 mg/dL (7-17); Carbon Dioxide 25 mmol/L (22-30); Chloride 110 mmol/L (98-107); Non-African American GFR(CKD) 78 (>60 ml/min/1.73 sqM); Potassium 4.5 mmol/L (3.5-5.1); Sodium 142 mmol/L (137-145)
== END | disposition home or self-care (01) ==
LOC: LABPAT 16:26
PROVIDERS: ATTEND Surgery
DX: Z01.812 Encounter for preprocedural laboratory examination (principal); I82.412 Acute embolism and thrombosis of left femoral vein
CPT/HCPCS: 80051; 82565; 84520; 85025

== ENCOUNTER 2020-10-20 07:35 | Day surgery (SDC) | payer MEDICARE ==
[2020-10-17 14:41] VITALS: BMI 28.5
[~2020-10-20 07:35] MED LIST: SODIUM CHLORIDE 0.9% 1,000 ML in EMPTY BAG 1 BAG IV ONE
[2020-10-20] MEDS ORDERED: SODIUM CHLORIDE 0.9% 1,000 ML IV ONE (08:06)
[2020-10-20 08:10] VITALS: RESP 16; TEMP 97.6
[2020-10-20] MEDS ORDERED: LIDOCAINE 1% INJ 10MG/ML (20 ML MDV) ONE (08:13)
[2020-10-20] MEDS ORDERED: PROPOFOL 10 MG/ML 20 ML VIAL IV ONE (08:39)
[2020-10-20] MEDS ORDERED: KETAMINE 10 MG/ML 20 ML VIAL ONE (08:39)
[2020-10-20] MEDS ORDERED: fentaNYL (PF) 50 MCG/ML 2 ML AMP ONE (08:39)
[2020-10-20] MEDS ORDERED: diphenhydrAMINE 50 MG/ML 1 ML VIAL ONE (08:39)
[2020-10-20] MEDS ORDERED: MIDAZOLAM 2 MG/2 ML VIAL ONE (08:39)
[2020-10-20] MEDS ORDERED: HYDROmorphone (PF) 1 MG/ML ONE (08:39)
[2020-10-20] MEDS ORDERED: LIDOCAINE 1% INJ 10MG/ML (20 ML MDV) SQ ONE (09:03)
[2020-10-20] MEDS ORDERED: IOPAMIDOL-250 50ML BTL IV ONE (09:53)
[2020-10-20] MEDS ORDERED: CLOPIDOGREL 75 MG TAB ONE (09:56)
[2020-10-20] MEDS ORDERED: CLOPIDOGREL 75 MG TAB PO ONE (09:57)
[2020-10-20] MEDS ORDERED: SODIUM CHLORIDE 0.9% 1,000 ML IV SCH (10:30)
--- NOTE | 2020-10-20 10:47 | P.OP ---
Date of Procedure: 10/20/20 Description of Procedure: Preoperative diagnosis: [Left lower extremity DVT, deep venous reflux] Postoperative diagnosis: Same, iliac vein compression Procedure: [#1 ultrasound guided left popliteal vein access #2 left popliteal, femoral, iliac vein venogram #3 left popliteal vein intravascular ultrasound #4 left femoral vein intravascular ultrasound #5 left iliac vein intravascular ultrasound #6 inferior vena cava intravascular ultrasound #7 placement of left iliac stent, Abre 16 x 80] Surgeon: Marnie Langford D.O. EBL: [Less than 10 mL] IV fluids: [See records] Urine output: [Not measured] Drains: [None] Complications: [None immediately apparent] Condition: [Stable to recovery] Operative indication and findings: [The patient is a 69-year-old female who presented to my office back in the fall with findings of a femoral-popliteal left lower extremity DVT. She underwent her anticoagulation therapy and on repeat was found to have chronic vein thrombus as well as deep venous reflux. She states she has had heaviness and achiness in her legs for more than 10 years worse on the left than on the right. She has common femoral deep venous reflux on the left and femoral and popliteal venous reflux on the right. With that we discussed going forward with a thrombectomy, intravascular ultrasound and possible stenting of her left iliac vein. Risks and benefits were discussed and she seemingly understood and was willing to proceed as such] Procedure in detail: [Patient was taken to the operative suite and placed in prone position after adequate monitoring by anesthesia. The left popliteal space was prepped and draped in usual sterile fashion. A preprocedure timeout was performed, all parties are in agreement. The ultrasound was utilized and the left upper tibial vein was identified. The skin overlying was anesthetized and accessed the popliteal vein was obtained. A 5-Djiboutian sheath was placed in the venogram was performed revealing no evidence of occlusion. Wire was placed and an 8-Djiboutian sheath was then placed over the top. Sequential venograms of the femoral, iliac and vena cava were obtained in stations. That point the intravascular ultrasound was inserted and placed through the popliteal vein and visualized the femoral, iliac and vena cava. A withdrawal recording was performed revealing significant stenosis and narrowing of the iliac vein with a reference area of 107 and the area of greatest compression of 49 mm. Given these findings it was decided a stent replaced. Further markings were obtained and a 16 stent was chosen. Stent was deployed at the appropriate level and a post dilation balloon angioplasty was performed with a 14 x 40 balloon.. Post i ntravascular ultrasound was performed revealing an area of 168.6 mm at the affected site previous. Catheters and wires removed. The sheath was removed and pressure was held until hemostasis was adequate. The patient was transferred back to recovery in stable condition having tolerated her procedure well.] Plan - Discharge Summary Discharge Rx Participant: Yes New Discharge Prescriptions: New HYDROcodone/APAP 5-325MG [[place] 5] 1 each PO Q4HR PRN #5 tab PRN Reason: Pain Clopidogrel [Plavix] 75 mg PO DAILY #30 tablet No Action Multivitamins, Thera [Multivitamin (formulary)] 1 tab PO DAILY Cholecalciferol [Vitamin D3 (25 Mcg = 1000 Iu)] 1,000 unit PO DAILY Acetaminophen with Codeine [Tylenol w/codeine #4] 1 tab PO BID PRN PRN Reason: Pain Levothyroxine Sodium 125 mcg PO DAILY Krill Oil 500 mg PO DAILY Apixaban [Eliquis] 5 mg PO BID Nitrofurantoin Macrocrystal [Macrodantin] 100 mg PO HS Discharge Medication List Cholecalciferol [Vitamin D3 (25 Mcg = 1000 Iu)] 1,000 unit PO DAILY 06/06/16 [History] Multivitamins, Thera [Multivitamin (formulary)] 1 tab PO DAILY 06/06/16 [History] Acetaminophen with Codeine [Tylenol w/codeine #4] 1 tab PO BID PRN 05/09/17 [History] Levothyroxine Sodium 125 mcg PO DAILY 05/09/17 [History] Krill Oil 500 mg PO DAILY 10/31/18 [History] Apixaban [Eliquis] 5 mg PO BID 10/17/20 [History] Nitrofurantoin Macrocrystal [Macrodantin] 100 mg PO HS 10/17/20 [History] Clopidogrel [Plavix] 75 mg PO DAILY #30 tablet 10/20/20 [Rx] HYDROcodone/APAP 5-325MG [[place] 5] 1 each PO Q4HR PRN #5 tab 10/20/20 [Rx] Follow up Appointment(s)/Referral(s): Marnie Langford DO [STAFF PHYSICIAN] - 1 Week (please call office on friday for one week follow up appointment. ) Patient Instructions/Handouts: Clopidogrel (By mouth), Peripheral Vascular Disease (DC), Peripheral Vascular Angioplasty (DC), Procedural Sedation (ED) Activity/Diet/Wound Care/Special Instructions: Please call to make appointment date and time no driving today. keep puncture site clean dry, ok to shower tomorrow. no ointments powders lotions on puncture site. no baths, pools, lakes, hot tubs for 3 days to prevent infection. signs of infection ie:fever, rash, drainage from px site, swelling contact doctor. if any heavy bleeding from px site, return to ER.
[2020-10-20] MEDS ORDERED: HYDROcodone/APAP 5-325MG 1 EACH TAB ONE (12:11)
[2020-10-20] MEDS ORDERED: HYDROmorphone 1 MG/ML 1 ML SYRINGE IVP STA (12:22)
--- NOTE | 2020-10-20 13:25 | IR ---
Fluoroscopy HISTORY: Leg pain 8.2 minutes fluoroscopy time supplied to the referring clinician. 94 intraoperative C-arm images doc ument the procedure. See dictated report from vascular surgery.
[2020-10-20 13:48] VITALS: BP 128/65
[2020-10-20 13:54] VITALS: PULSE 56
== END 2020-10-20 14:09 | disposition home or self-care (01) ==
LOC: CATHCVL 07:35
PROVIDERS: ATTEND Surgery
DX: I87.1 Compression of vein (principal); I82.402 Acute embolism and thrombosis of unspecified deep veins of left lower extremity; E05.00 Thyrotoxicosis with diffuse goiter without thyrotoxic crisis or storm; Z78.0 Asymptomatic menopausal state; M79.7 Fibromyalgia; Z20.822 Contact with and (suspected) exposure to COVID-19; Z98.891 History of uterine scar from previous surgery; Z90.89 Acquired absence of other organs; Z98.890 Other specified postprocedural states; Z90.49 Acquired absence of other specified parts of digestive tract; Z87.891 Personal history of nicotine dependence; Z79.01 Long term (current) use of anticoagulants; Z79.890 Hormone replacement therapy; Z79.52 Long term (current) use of systemic steroids; Z79.899 Other long term (current) drug therapy; Z88.5 Allergy status to narcotic agent
CPT/HCPCS: 37221; 75820; 87635; C1894 ×3; C1769 ×4; C1753; C1725; C1876; J2250; J1200; J2001; J3010; J1170; J2704; Q9966

== ENCOUNTER → 2021-01-26 | Outpatient (CLI) | payer MEDICARE ==
--- NOTE | 2021-01-28 20:06 | CT ---
EXAMINATION TYPE: CT pelvis wo/w con DATE OF EXAM: 01/26/2021 COMPARISON: 10/31/2018 HISTORY: 70-year-old female I88.9, nonspecific lymphadenitis. Pain and lump on right sided vulvar are a x6-8 months. TECHNIQUE: Contiguous axial scanning of the pelvis before and after administration of 100 ml Isovue 3 00 IV contrast. Delayed images through the bladder and coronal/sagittal reconstructions performed. CT DLP: 1400.4 mGycm Automated exposure control for dose reduction was used. FINDINGS: Extrarenal pelvis on the right. Anterior right kidney lower pole cortical cyst measuring 3.7 cm. With in the visualized lower abdomen and pelvis, no lymphadenopathy is identified. A new stent across the left common iliac vein. Moderate stool burden. No perisplenic inflammatory change. Oral contrast progressed into the right si de of the colon. No dilated small bowel, free fluid, or free air. Mild circumferential bladder wall thickening. Correlate to exclude cystitis. Uterus anteverted. Neith er ovary is well seen, and could be small and postmenopausal. Pelvic fluid was. No abnormal fluid collection in the pelvis or pelvic lymphadenopathy. There is pelvic floor relaxation and new 1.9 cm soft tissue nodularity projecting towards the left fr om the rectal anal junction, axial image 56 and coronal image 46. Bones: Moderate degenerative change of both hips. Degenerated scoliotic curvature mid to lower lumbar spine. Ligamentum flavum thickening and disc bulge may contribute to moderate spinal canal stenosis at L3-L4. Grade 1 retrolisthesis at this level as well. IMPRESSION: 1. NEW 1.9 CM SOFT TISSUE NODULARITY PROJECTING TOWARD THE LEFT FROM THE RECTAL ANAL JUNCTION. GIVEN THE PRESENCE OF NEW OR PROGRESSIVE PELVIC FLOOR RELAXATION, SOME FOCAL HERNIATION OF THE BOWEL WALL H ERE TOWARDS THE ISCHIORECTAL FOSSA IS A POSSIBILITY. NEOPLASM NOT EXCLUDED AT THIS TIME. CONSIDER REC GANGA PHYSICAL EXAM PROBING FOR ANY POTENTIAL HERNIATION. PET/CT CAN ALSO BE CONSIDERED. 2. NO SUSPICIOUS LYMPHADENOPATHY OR FLUID COLLECTION IDENTIFIED.
== END | disposition home or self-care (01) ==
LOC: RADCTMAIN 13:47
PROVIDERS: ATTEND Obstetrics & Gynecology
DX: R93.3 Abnormal findings on diagnostic imaging of other parts of digestive tract (principal); K46.9 Unspecified abdominal hernia without obstruction or gangrene
CPT/HCPCS: 72194; Q9967

== ENCOUNTER → 2021-03-12 | Outpatient (CLI) | payer MEDICARE ==
[2021-03-12 14:56] LABS: Basophils # (A) 0.1 k/uL (0-0.2); Basophils % (A) 1 %; Eosinophils # (A) 0.3 k/uL (0-0.7); Eosinophils % (A) 4 %; HCT 41.4 % (34.0-46.0); Lymphocytes # (A) 1.8 k/uL (1.0-4.8); Lymphocytes % (A) 21 %; MCH 29.6 pg (25.0-35.0); MCHC 31.3 g/dL (31.0-37.0); MCV 94.6 fL (80.0-100.0); Mean Platelet Volume 7.5; Monocytes # (A) 0.3 k/uL (0-1.0); Monocytes % (A) 4 %; Neutrophils # (A) 5.6 k/uL (1.3-7.7); Neutrophils % (A) 68 %; Platelet Count 183 k/uL (150-450); RBC 4.38 m/uL (3.80-5.40); RDW 12.9 % (11.5-15.5); WBC 8.2 k/uL (3.8-10.6)
[2021-03-12 15:08] LABS: Potassium 4.2 mmol/L (3.5-5.1)
== END | disposition home or self-care (01) ==
LOC: LABPAT 14:03
PROVIDERS: ATTEND Surgery
DX: I87.2 Venous insufficiency (chronic) (peripheral) (principal)
CPT/HCPCS: 36415; 80051; 82565; 84520; 85025

== ENCOUNTER 2021-03-14 11:47 | Day surgery (SDC) | payer MEDICARE ==
[2021-03-12 13:28] VITALS: BMI 29.1
[2021-03-14] MEDS ORDERED: SODIUM CHLORIDE 0.9% 1,000 ML IV ONE (12:05)
[2021-03-14 12:14] VITALS: RESP 16; TEMP 98.4
[2021-03-14] MEDS ORDERED: LIDOCAINE 1% INJ 10MG/ML (20 ML MDV) ONE (12:56)
[2021-03-14] MEDS: MIDAZOLAM 2 MG/2 ML VIAL IV ONE ×2 (13:13→13:18)
[2021-03-14] MEDS ORDERED: LIDOCAINE 1% INJ 10MG/ML (20 ML MDV) SQ ONE ×2 (13:14)
[2021-03-14] MEDS ORDERED: fentaNYL (PF) 50 MCG/ML 2 ML AMP ONE (13:25)
[2021-03-14] MEDS: fentaNYL (PF) 50 MCG/ML 2 ML AMP IV ONE ×2 (13:26→13:55)
[2021-03-14] MEDS ORDERED: MIDAZOLAM 2 MG/2 ML VIAL IV ONE (13:56)
[2021-03-14] MEDS ORDERED: IOPAMIDOL-370 100ML BTL INJ ONE (14:10)
[2021-03-14 15:58] VITALS: BP 129/65; PULSE 56
--- NOTE | 2021-03-14 16:49 | IR ---
Fluoroscopy HISTORY: Leg pain 10 minutes fluoroscopy time supplied to the referring clinician. 888 intraoperative C-arm images doc ument the procedure. See dictated report from vascular surgery.
--- NOTE | 2021-03-21 14:09 | P.OP ---
Date of Procedure: 03/14/21 Description of Procedure: Preoperative diagnosis: [Chronic venous insufficiency, deep venous reflux] Postoperative diagnosis: Same Procedure: [Ultrasound-guided right common femoral vein access Ultrasound-guided left common femoral vein access Right iliofemoral venogram Left iliofemoral venogram Intravascular ultrasound of the vena cava Intravascular venous ultrasound of the right common iliac vein Intravascular ultrasound of the right external iliac vein Intravascular ultrasound of the right femoral vein Intravascular ultrasound of the left common iliac vein Intravascular ultrasound of the left external iliac vein percutaneous transluminal balloon venoplasty of the left common iliac vein Percutaneous transluminal stent placement 16 x 80 Abre Moderate conscious sedation 58 minutes] Surgeon: Marnie Langford D.O. EBL: [<10cc] IV fluids: [See records] Urine output: [Not measured] Drains: [None] Complications: [None immediately apparent] Condition: [Stable to recovery] Operative indication and findings: [The patient is a 70-year-old female whoHad heaviness and achiness her bilateral lower extremities with findings of deep vein reflux on ultrasound. SheHas previouslyHad a left iliac stent placed and returns today for further investigation of the left as well as the rightAs there was still reflux noted on imaging] Procedure in detail: [The patient's significant for the operative suite and placed in supine position. Bilateral groins are prepped and draped in usual sterile fashion. A preprocedure timeout was performed, all parties were in agreement. The ultrasound was utilized and the right common femoral vein was accessed. Seldinger technique was used to place an 8-Thai sheath. A iliofemoral venogram was performed revealing no obvious areas of thrombus or occlusion. That point catheters and wires were used access the vena cava and the iris was then placed. The proximal confluence at the level of the right common iliac vein showed severe narrowing and compression. It was also visualized the left iliac stent through the MIRLANDE at this level given its angle. At that point it was decided to access the left common femoral vein. Ultrasound was utilized and an 8-Thai sheath was placed. Catheters and wires were used Afrin iliofemoral venogram. There was some level of stenosis at the proximal common iliac. An MIRLANDE was performed showing some chronic appearing thrombus in the proximal stent. A 16 x 40 balloon was applied with improvement of the stenosis.The balloon was then left in place insufflated at the proximal portionOf the left common iliac Vein.The right femoral vein sheath was upsized to a 10-Thai and a 16 x 80 Abre stent was placed in the right common iliac at the level of the narrowing. This landed and precise position. Follow-up MIRLANDE was performed showing significant improvement of the areas of stenosis bilaterally. Given these findings the wires and catheters were removed. The sheath removed and bilateral manual pressure was held]
== END 2021-03-14 16:25 | disposition home or self-care (01) ==
LOC: CATHCVL 11:47
PROVIDERS: ATTEND Surgery
DX: I87.1 Compression of vein (principal); I87.2 Venous insufficiency (chronic) (peripheral); Z95.820 Peripheral vascular angioplasty status with implants and grafts; E05.00 Thyrotoxicosis with diffuse goiter without thyrotoxic crisis or storm; E03.9 Hypothyroidism, unspecified; D72.0 Genetic anomalies of leukocytes; Z87.01 Personal history of pneumonia (recurrent); Z98.890 Other specified postprocedural states; Z20.822 Contact with and (suspected) exposure to COVID-19; Z98.891 History of uterine scar from previous surgery; Z90.49 Acquired absence of other specified parts of digestive tract; Z87.891 Personal history of nicotine dependence; Z79.01 Long term (current) use of anticoagulants; Z79.890 Hormone replacement therapy; Z79.52 Long term (current) use of systemic steroids; Z79.899 Other long term (current) drug therapy
CPT/HCPCS: 75822; 37238; 37252; 37253; 87635; C1894 ×2; C1769 ×4; C1753; C1725; C1876; J2250; J2001; J3010; Q9967

== ENCOUNTER → 2021-08-20 | Outpatient (CLI) | payer MEDICARE ==
--- NOTE | 2021-08-21 06:29 | MR ---
EXAMINATION TYPE: MR pelvis wo/w con DATE OF EXAM: 08/20/2021 COMPARISON: CT scan 01/26/2021 HISTORY: Abnormal CT, right groin pain that radiates to back side. CONTRAST: Standard multiplanar, multisequence MRI departmental protocol images were obtained without contrast a nd with 9 mL intravenous Gadavist gadolinium contrast. Urinary bladder distends smoothly. Uterus is anteverted. Uterus has normal size and contour there is enlargement of the uterine cavity with a elongated intermediate signal mass that measures 2.7 x 1.0 c m. There is no free fluid in the cul-de-sac. There is no evidence of inguinal hernia. No inguinal eliezer nopathy. No evidence of adnexal mass. No evidence of rectal mass. There is preservation of vagina. The contrast images show endometrial enhancement on the posterior wa ll of the uterus. IMPRESSION: Enhancing posterior wall endometrial mass could be a polyp. Follow-up is recommended. No evidence of inguinal adenopathy or hernia.
== END | disposition home or self-care (01) ==
LOC: RADMRIMAIN 14:33
PROVIDERS: ATTEND Obstetrics & Gynecology
DX: R19.00 Intra-abdominal and pelvic swelling, mass and lump, unspecified site (principal)
CPT/HCPCS: 72197; A9585

== ENCOUNTER → 2024-02-25 | Outpatient (CLI) | payer MEDICARE ==
--- NOTE | 2024-02-29 13:36 | MM ---
Reason for Exam: Screening (asymptomatic). Last mammogram was performed 3 year(s) and 7 month(s) ago. Patient History: Menarche at age 14. First Full-Term at age 29. Postmenopausal. Patient has history of breast feeding. Mother had breast cancer at or over age 50. Risk Values: Esha 5 year model risk: 3.2%. NCI Lifetime model risk: 7.7%. Prior Study Comparison: 07/10/2020 Bilateral Screening Mammogram, [facility]. Tissue Density: The breasts are almost entirely fatty. Findings: Analyzed By CAD. The pattern is symmetrical. No significant interval change is evident. Benign punctate calcifications are scattered bilaterally. No suspicious groups of microcalcifications, spiculated or lobular masses, architectural distortion or other secondary signs of malignancy are mammographically apparent. Overall Assessment: Benign, BI-RAD 2 Management: Screening Mammogram of both breasts in 1 year. A negative mammogram report should not preclude additional follow up of suspicious palpable abnormalities. Patient should continue monthly self breast exam. A clinical breast exam by your physician is recommended on an annual basis and results should be correlated with mammographic findings. Note on Esha scores and lifetime risk: 1. A Esha score greater than 3% is considered moderate risk. If this is the case, consider specialist referral to assess eligibility for a risk reducing agent. 2. If overall lifetime risk for the development of breast cancer is 20% or higher, the patient may qualify for future screening with alternating mammogram and breast MRI. [facility], , 02/29/2024 1:33 PM. Electronically signed and approved by: Rakan Navarro D.O. Radiologis
== END | disposition home or self-care (01) ==
LOC: RADMAMWWP 10:52
PROVIDERS: ATTEND Family Medicine
DX: Z80.3 Family history of malignant neoplasm of breast
CPT/HCPCS: 77063; 77067

== ENCOUNTER → 2024-10-12 | Outpatient (CLI) | payer MEDICARE | END | disposition home or self-care (01) | LOC: LABPAT 15:44 | PROVIDERS: ATTEND Orthopaedic Surgery | DX: Z01.812 Encounter for preprocedural laboratory examination (principal); Z22.322 Carrier or suspected carrier of Methicillin resistant Staphylococcus aureus; M16.11 Unilateral primary osteoarthritis, right hip | CPT/HCPCS: 86850; 86900; 86901; 87070 ==

== ENCOUNTER 2024-10-18 08:06 | Inpatient (IN) | payer MEDICARE ==
[2024-10-12 09:07] VITALS: BMI 25.8
[~2024-10-18 08:06] MED LIST changes: +LIDOCAINE 1% (10MG/ML) FOR IV START INTRADERMA PRN; -SODIUM CHLORIDE 0.9% 1,000 ML in EMPTY BAG 1 BAG IV ONE; +TRANEXAMIC 1,000 MG/100ML-NACL 1,000 MG in SALINE 1 100ML.BAG IVPB PRN
[2024-10-18] MEDS: IV FLUID CONTINUATION 1,000 ML IV ONE ×2 (08:48→15:16)
[2024-10-18] MEDS: LACTATED RINGERS 1,000 ML IV SCH ×2 (08:48→15:42)
[2024-10-18] MEDS: ACETAMINOPHEN TAB 500 MG TAB PO PRN (08:59)
[2024-10-18] MEDS: MELOXICAM 7.5 MG TAB PO PRN (08:59)
[2024-10-18] MEDS: ONDANSETRON 4 MG/2 ML VIAL IVP ONE (08:59)
[2024-10-18] MEDS: MIDAZOLAM 2 MG/2 ML VIAL IV ONE (09:15)
--- NOTE | 2024-10-18 09:36 | P.ANPRN ---
Procedure Note - Anesthesia - Nerve Block Performed Right Alfonso Single Time Out Performed: Yes ([id number]) Date of Procedure: 10/18/24 Location of Patient: PreOp Indication: Acute Post-Operative Pain, Dx/Pain Location (Right hip), Requested by Surgeon Specifically requested for management of pain by DrNieves: Jim Fernández Sedation Type: Sedate with meaningful contact maintained Position: Supine Catheter: None Needle Types: Pajunk Needle Gauge: 21 (80 mm) Ultrasound used to visualize needle placement: Yes Ultrasound used to observe medication spread: Yes Injectate: 0.5% Ropivacaine (see comment for volume) (25 cc + 5ml of saline + 4mg of decadron) Blood Aspirated: No Pain Paresthesia on Injection Noted: No Resistance on Injection: Normal Image Stored and Saved: Yes Events: Uneventful and Well Tolerated
--- NOTE | 2024-10-18 10:03 | HP ---
HISTORY AND PHYSICAL DATE OF SURGERY: 10/18/2024. HISTORY OF PRESENT ILLNESS: Avelina Pritchett is a 73-year-old patient seen with symptomatic right hip osteoarthritis. We discussed options regarding treatment of right total hip arthroplasty. Consents obtained. Medical clearance provided by Dr. Ash Salgado. PAST MEDICAL HISTORY: Hypothyroidism. Cardiovascular disease. PAST SURGICAL HISTORY: Appendectomy, section, hysterectomy, iliac stent insertion. DAILY MEDS: 1. Levothyroxine. 2. Plavix. 3. Sertraline. ALLERGIES: None. SOCIAL HISTORY: She denies tobacco use. PHYSICAL EVALUATION OF THE RIGHT HIP: She has diffuse tenderness about the hip girdle. Limited range of motion with severe pain. Positive hip impingement sign. Straight-leg raise negative. Distal neurovascular exam is intact. IMAGING STUDIES: Radiographs of the right hip reveals severe osteoarthritic changes. IMPRESSION: 1. Right hip osteoarthritis. 2. Hypothyroidism. PLAN: Direct anterior right total hip arthroplasty. MMODL / IJN: [id number] /
[2024-10-18] MEDS ORDERED: TRANEXAMIC 1,000 MG/100ML-NACL PREMIX BAG ONE (10:06)
[2024-10-18] MEDS ORDERED: SUCCINYLCHOLINE CHLORIDE 200 MG/10 ML VIAL IV ONE (10:06)
[2024-10-18] MEDS ORDERED: HYDROmorphone (PF) 1 MG/ML ONE (10:06)
[2024-10-18] MEDS ORDERED: DEXAMETHASONE SOD PHOSPHATE 4 MG/ML 1 ML VIAL ONE (10:06)
[2024-10-18] MEDS ORDERED: GLYCOPYRROLATE 0.2 MG/ML 2 ML VIAL ONE (10:06)
[2024-10-18] MEDS ORDERED: fentaNYL (PF) 50 MCG/ML 2 ML AMP ONE (10:06)
[2024-10-18] MEDS ORDERED: SODIUM CHLORIDE 0.9% (PF) 10 ML VIAL ONE (10:06)
[2024-10-18] MEDS ORDERED: ROCURONIUM 10 MG/ML (5 ML VIAL) IV ONE (10:06)
[2024-10-18] MEDS ORDERED: NEOSTIGMINE 1 MG/ML 10 ML VIAL ONE (10:06)
[2024-10-18] MEDS ORDERED: ROPIVACAINE 5 MG/ML 30 ML VIAL ONE (10:06)
[2024-10-18] MEDS ORDERED: PROPOFOL 10 MG/ML 20 ML VIAL IV ONE (10:06)
[2024-10-18] MEDS ORDERED: LIDOCAINE 1% INJ 10MG/ML (20 ML MDV) ONE (10:06)
[2024-10-18] MEDS: ceFAZolin 2 GM in DEXTROSE 5% IN WATER 50 ML IVPB PRN (10:10)
[2024-10-18] MEDS: ceFAZolin 1,000 MG in SODIUM CHLORIDE 0.9% 1,000 ML IRRIGATION ONE (10:38)
--- NOTE | 2024-10-18 11:55 | XR ---
EXAMINATION TYPE: XR Hip Limited RT, [place] guidance operating room DATE OF EXAM: 10/18/2024 11:51 AM COMPARISON: None CLINICAL INDICATION: Female, 73 years old with history of M16.11 RIGHT HIP OSTEOARTHRITIS; PHH, pain FINDINGS: Serial intraoperative fluoroscopic images during placement of right total hip arthroplasty. RIGHT HIP REPLACEMENT. DR MARADIAGA FLUORO TIME: 12.7 SEC DAP: .9363 4 images are submitted. Sequential imaging showing placement of the right acetabular cup and femoral stem components. Final image shows gross anatomic alignment. [facility], Workstation: [email or web address], 10/18/2024 11:53 AM
[2024-10-18] MEDS ORDERED: NALOXONE 0.4 MG/ML 1 ML VIAL IV PRN (12:04)
[2024-10-18] MEDS ORDERED: HYDROmorphone 0.5 MG/0.5 ML SYRINGE IVP PRN ×2 (12:04)
--- NOTE | 2024-10-18 12:04 | P.OP ---
Date of Procedure: 10/18/24 Preoperative Diagnosis: Right hip osteoarthritis Postoperative Diagnosis: Right hip osteoarthritis Procedure(s) Performed: Direct anterior right total hip arthroplasty Implants: 1. DePuy Corail 135 degree standard collared KA size 12 press-fit femoral stem 2. DePuy Kelly 54 mm press-fit acetabular shell 3. DePuy Kelly neutral polyethylene acetabular liner 36 mm ID 54 mm OD 4. Biolox delta ceramic femoral head +12 36 mm Anesthesia: GETA, regional (Erector spinae block) Surgeon: Jim Fernández Ham Trimmer #1: Uday Vila Estimated Blood Loss (ml): 75 Pathology: none sent Condition: stable Disposition: PACU Indications for Procedure: 73-year-old patient seen with symptomatic right hip osteoarthritis. After having treatment options discussed, she elected to proceed with direct anterior right total hip arthroplasty. Operative Findings: See description of procedure Description of Procedure: The patient was taken to the operative suite. Patient underwent a general anesthetic by the department of anesthesia. Patient was then transferred to the [place] table. Patient was given preoperative IV antibiotics and TXA. Both lower extremities were placed in standard leg spars. The hip was then prepped and draped in the normal sterile orthopedic fashion. A standard anterior incision was made beginning 3 cm lateral and 1 cm distal to the ASIS extending 10 cm. Dissection was then carried down through the subcutaneous soft tissues down to the fascia overlying the tensor fascia isa. An incision was now made through the fascia. Careful dissection was taken down exposing the tensor fascia isa muscle. A Cobra retractor was now placed along the medial femoral neck and a second one along the lateral femoral neck. The venous circumflex vessels were now identified, cauterized and clipped. We identified the anterior hip capsule. An incision was made through the hip capsule along the lateral border. I performed a partial anterior capsulectomy. Retractors were now placed around the femoral neck itself. A femoral neck cut was now made with a sagittal saw. It was completed with an osteotome at the lateral neck area. The femoral head was now removed without difficulty. The extremity was now rotated to 60 of external rotation. It was locked in position. Residual labrum was now debrided out. Serial reaming was performed of the acetabulum while Jonathan MORALES assisted holding an anterior retractor for exposure. Once we reached the appropriate size and a trial was position and fit nicely. The appropriate size was now chosen opened and made available. It was introduced into the acetabulum without difficulty. The C-arm/fluoroscopy was now brought into the operative field. We made sure we had a true AP pelvic view. We now under direct C- arm/fluoroscopy introduced into the acetabular component with appropriate version and inclination. I held the cup in appropriate position well Jonathan MORALES used a mallet to seat the acetabular component. I noted the component now to be well seated and stable. Acetabular cup introduce her was removed. The C-arm was pulled back. An appropriate liner was introduced and clicked into position. It was felt to be stable. At this point retractors were removed. The extremity was now placed into 14o external rotation with no traction. The leg was now dropped to the ground and adducted. Appropriate retractors were now positioned along the proximal femur. We also placed our femoral look into position. Additional capsular releasing was performed to gain access to the proximal femur. We now used a box osteotome. A canal finder was now utilized. Serial broaching was now performed with the assistance of Jonathan MORALES tapping the broaches down with a mallet while held the broach in appropriate rotation and position. This was done until we reached the appropriate size with good overall rotational stability. Appropriate calcar planing was performed. A trial head/neck was placed into position. The hip was now reduced. The C- arm/fluoroscopy was brought back into the operative field. I obtained an AP pelvis which demonstrated adequate leg length alignment. The trial components appeared adequately sized and positioned. The C-arm/fluoroscopy was pulled back. Retractors were repositioned and the hip was dislocated. The leg was again taken down to the ground and adducted. Appropriate retractors were repositioned as well as the femoral hook. All trial components were removed. The femoral implant was opened along with the femoral head. The femoral implant was introduced on the appropriate handle into our pre-broached area. I held the component position well Jonathan MORALES used a mallet to seat the femoral component. The femoral component was now noted to be well seated and stable.. The femoral head was introduced with good positioning and fixation noted. Retractors were now removed. The hip was now reduced. There appeared be good positioning of the hip confirmed on intraoperative fluoroscopy. Spot films were obtained to document this. A second gram of TXA was given. Bipolar cautery had been utilized intermittently through the procedure for hemostasis. The wound was irrigated copiously with pulse lavage mechanical irrigation. The fascia was repaired with Vicryl suture. The subcutaneous soft tissues were repaired in layers with Vicryl suture. The skin was approximated with pernio/Dermabond. Sterile dressings were applied. Patient was then awakened, transferred to a bed and taken to recovery in stable condition. Jonathan MORALES assisted with the complex procedure.
[2024-10-18] MEDS: HYDROmorphone 0.5 MG/0.5 ML SYRINGE IVP PRN ×2 (12:26→15:59)
[2024-10-18] MEDS: ceFAZolin 2 GM in DEXTROSE 5% IN WATER 50 ML IVPB SCH (18:06)
[2024-10-18] MEDS: HYDROcodone/APAP 7.5-325MG 1 EACH TAB PO PRN (19:45)
[2024-10-18] MEDS ORDERED: ASPIRIN 81 MG PO SCH (21:00)
[2024-10-19] MEDS: HYDROcodone/APAP 5-325MG 1 EACH TAB PO PRN (04:54)
[2024-10-19 08:02] LABS: Basophils # (A) 0.03 X 10*3/uL (0.00-0.10); Basophils % (A) 0.4 %; Eosinophils # (A) 0.07 X 10*3/uL (0.04-0.35); HCT 26.5 % (37.2-46.3); HGB 8.3 g/dL (12.0-15.0); Lymphocytes # (A) 1.37 X 10*3/uL (0.90-5.00); Lymphocytes % (A) 18.9 %; MCH 28.2 pg (27.0-32.0); MCHC 31.3 g/dL (32.0-37.0); MCV 90.1 FL (80.0-97.0); Monocytes # (A) 0.65 X 10*3/uL (0.20-1.00); NRBC Per 100 WBC 0 X 10*3/uL (0.00-0.01); Neutrophils % (A) 70.1 %; Platelet Count 210 X 10*3/uL (140-440); RBC 2.94 X 10*6/uL (4.10-5.20); RDW 14.7 % (11.5-14.5); WBC 7.26 X 10*3/uL (4.50-10.00)
[2024-10-19] MEDS: FAMOTIDINE 20 MG TAB PO SCH (08:55)
[2024-10-19] MEDS: MULTIVITAMINS, THERA 1 EACH TAB PO SCH (08:55)
[2024-10-19] MEDS: ASPIRIN 81 MG PO SCH (08:55)
[2024-10-19] MEDS: CLOPIDOGREL 75 MG TAB PO SCH (08:55)
--- NOTE | 2024-10-19 12:12 | P.PN ---
Subjective Progress Note Date: 10/19/24 Principal diagnosis: Status post direct anterior right total hip arthroplasty Patient evaluated at bedside, she is resting in her hospital chair. Patient has had some lightheadedness and dizziness along with low blood pressure this morning. She did do okay with physical therapy. She denies any chest pain or shortness of breath at this time. Her hemoglobin was noted to be significantly decreased. Objective - Vital Signs Vital signs: Vital Signs Temp 98.9 F 10/19/24 11:56 Pulse 65 10/19/24 11:56 Resp 16 10/19/24 11:56 BP 100/55 10/19/24 11:56 Pulse Ox 96 10/19/24 11:56 FiO2 Intake & Output 10/18/24 10/19/24 10/19/24 18:59 06:59 18:59 Intake Total 1990 0 Output Total 75 400 Balance 1916 -400 0 Weight 75 kg Intake: IV 1751 Oral 240 Blood Product 0 Unit 0 Output: Urine 400 Estimated Blood Loss 75 - Exam Right lower EXTR: Incision is clean, dry, and intact. The exofin fusion tape is in good condition. There is minimal soft tissue swelling and ecchymosis surrounding the medial and lateral aspects of the incision. Calf is soft, no tenderness with palpation. Plantar flexion, dorsiflexion, EHL, FHL are intact. Sensory exam to light touch throughout the extremity is intact, dorsal pedis pulses 2+. - Labs CBC & Chem 7: 10/19/24 03:04 Labs: Abnormal Lab Results - Last 24 Hours (Table) 10/19/24 10/19/24 Range/Units 03:04 08:41 RBC 2.94 L (4.10-5.20) X 10*6/uL Hgb 8.3 L (12.0-15.0) g/dL Hct 26.5 L (37.2-46.3) % MCHC 31.3 L (32.0-37.0) g/dL RDW 14.7 H (11.5-14.5) % Crossmatch See Detail Assessment and Plan Assessment: Acute blood loss anemia, expected surgical outcome Postoperative day #1 status post direct anterior right total hip arthroplasty Plan: Pain control, continue current medications. Will add gabapentin DVT prophylaxis, continue current medications 1 unit of packed RBCs has been ordered for anemia, continue IV fluids Weight-bear as tolerated with walker Icing and elevating of the extremity was discussed Medical recommendations appreciated Discharge planning: Will follow patient during hospital stay Time with Patient: Less than 30
[2024-10-19] MEDS: FERROUS SULFATE 325 MG TAB PO SCH (12:28)
[2024-10-19] MEDS: LEVOTHYROXINE 75 MCG TAB PO SCH (14:19)
[2024-10-19] MEDS: SERTRALINE 100 MG TAB PO SCH (15:16)
[2024-10-19] MEDS: ONDANSETRON 4 MG/2 ML VIAL IVP PRN (15:36)
--- NOTE | 2024-10-19 16:50 | P.CONS ---
History of Present Illness - Reason for Consult Consult date: 10/19/24 Medical management Requesting physician: Jim Fernández - Chief Complaint Right hip osteoarthritis status post direct anterior right total hip arthro - History of Present Illness This is a 73-year-old female status post direct anterior right total hip arthroplasty secondary to right hip osteoarthritis. Blood pressures soft, complained of some lightheadedness.denies chest pain, palpitations or shortness of breath. Postoperative hemoglobin decreased to 8.3 from preop hemoglobin of 12. Currently receiving 1 unit of packed RBC. Tmax 99.4, normal WBC. Evaluated by PT. Review of Systems ROS Statement: Those systems with pertinent positive or pertinent negative responses have been documented in the HPI. ROS Other: All systems not noted in ROS Statement are negative. 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 yeast bacteremia History of Any Multi-Drug Resistant Organisms: ESBL Year Discovered:: 04/14/24 MDRO Source:: urine Past Surgical History: Adenoidectomy, Back Surgery, Section, Cholecystectomy, Tonsillectomy Additional Past Surgical History / Comment(s): lumbar laminectomy, C-sections x2, colonoscopy, bilateral eye surgery (muscle repair) as a child Past Anesthesia/Blood Transfusion Reactions: No Reported Reaction, Motion Sickness Smoking Status: Former smoker - Past Family History Father Family Medical History: Congestive Heart Failure (CHF), Diabetes Mellitus, Myocardial Infarction ([place]), Vascular Disorder Additional Family Medical History / Comment(s): Father of a [place] at the age of 71yrs. Mother Family Medical History: Thyroid Disorder Additional Family Medical History / Comment(s): Mother had Grave's disease and HDL B27+ (pt states it is a autoimmune disease). Mother also had cancer of the breast and lung and survived both due to early detection. She at the age of 90yrs. Sister(s) Family Medical History: Cancer Additional Family Medical History / Comment(s): BREAST & BONE CANCER Medications and Allergies Home Medications Medication Instructions Recorded Confirmed Type Levothyroxine Sodium 150 mcg PO DAILY 05/09/17 10/18/24 History Acetaminophen with Codeine 1 tab PO DAILY PRN 03/12/21 10/18/24 History [Tylenol w/Codeine #4 Tablet] Sertraline [Zoloft] 100 mg PO TID 03/12/21 10/18/24 History Baclofen [Lioresal] 30 mg PO BID PRN 10/12/24 10/18/24 History Clopidogrel [Plavix] 75 mg PO QAM 10/12/24 10/18/24 History Ciprofloxacin HCl [Cipro] 500 mg PO Q12HR 10/18/24 10/18/24 History Ferrous Sulfate [Iron (65 MG 325 mg PO DAILY #30 tab 10/20/24 Rx Elemental)] Gabapentin [Gabarone] 100 mg PO BID PRN #30 tab 10/20/24 Rx HYDROcodone/APAP 7.5-325MG [[place] 1 each PO Q6HR PRN #28 tab 10/20/24 Rx 7.5] Sennosides/Docusate Sodium 2 each PO DAILY PRN #30 tablet 10/20/24 Rx [Senna-S 8.6-50 mg Tablet] Allergies Allergy/AdvReac Type Severity Reaction Status Date / Time meperidine [From Demerol] Allergy Nausea & Verified 10/18/24 08:26 Vomiting Physical Exam Vitals: Vital Signs Temp Pulse Pulse Resp BP BP Pulse Ox 10/19/24 15:17 99.4 F 84 99/64 10/19/24 14:00 98.9 F 73 15 96/63 95 10/19/24 12:26 99.1 F 67 17 105/65 10/19/24 12:06 99.3 F 66 103/62 97 10/19/24 11:56 98.9 F 65 16 100/55 96 10/19/24 07:52 99.0 F 81 17 96/48 99 10/19/24 01:34 92/46 10/19/24 00:30 98.6 F 63 17 87/49 99 10/18/24 19:51 98.4 F 71 18 116/77 98 10/18/24 17:45 59 L 98/63 96 10/18/24 17:18 72 93/68 10/18/24 17:02 65 92/56 10/18/24 16:47 64 92/57 10/18/24 16:32 61 85/59 92 L 10/18/24 16:19 64 111/72 10/18/24 16:02 57 L 102/64 Intake and Output 10/19/24 10/19/24 10/19/24 06:59 14:59 22:59 Intake Total 0 310 Output Total 400 Balance -400 0 310 Intake: Blood Product 0 310 Rc As-1 Unit 0 310 [id number] Output: Urine 400 Other: # Voids 1 PHYSICAL EXAM: VITAL SIGNS: [Reviewed] GENERAL: Well-nourished female, alert and oriented x 3, sitting up in chair, no acute distress HEENT:Normocephalic, atraumatic ,conjunctivae normal. eyes normal. NECK: Supple, no JVD. No thyroid enlargement. No LNs CARDIOVASCULAR: S1, S2 regular. No murmur RESPIRATION: Unlabored, equal air entry, essentially clear to auscultation, bilateral bases diminished. ABDOMEN: Soft, nondistended, nontender . No guarding. no rigidity, positive bowel sounds. LEGS: Right lower extremity minimal edema/ecchymosis with dressing clean dry and intact. No calf tenderness, peripheral pulses intact. NERVOUS SYSTEM: Cranial N 2-12 grossly normal. No focal deficits. Skin: Warm and dry, no rash Results CBC & Chem 7: 10/20/24 02:58 10/20/24 02:58 Labs: Abnormal Lab Results - Last 24 Hours (Table) 10/19/24 10/19/24 Range/Units 03:04 08:41 RBC 2.94 L (4.10-5.20) X 10*6/uL Hgb 8.3 L (12.0-15.0) g/dL Hct 26.5 L (37.2-46.3) % MCHC 31.3 L (32.0-37.0) g/dL RDW 14.7 H (11.5-14.5) % Crossmatch See Detail Assessment and Plan Assessment: Right hip osteoarthritis status post direct anterior right total hip arthroplasty Acute blood loss anemia, postop, expected outcome, status post 1 unit of packed RBCs Fibromyalgia Graves' disease Scoliosis Ankylosing spondylitis Former nicotine dependence Chronic venous insufficiency Plan: Continue on current medication regimine ,monitoring and symptomatic treatment. 1 unit packed RBCs. Close monitoring of blood pressures and hemoglobin. Repeat labs ordered for a.m. aggressive pulmonary toileting with incentive spirometer reinforced.pain management and DVT prophylaxis as per orthopedic surgery. PT. The impression and plan of care has been dictated as directed. : I performed a history and examination of this patient, discussed the same with the dictator. I agree with the dictator's note ,documented as a scribe. Any additional findings or plans will be noted.
[2024-10-19] MEDS: GABAPENTIN 100 MG CAP PO SCH (20:27)
[2024-10-19] MEDS: SENNOSIDES 8.6 MG TAB PO SCH (20:27)
[2024-10-20 02:39] VITALS: TEMP 98.4
[2024-10-20 08:42] LABS: BUN/Creat Ratio 10.88 Ratio (12.00-20.00); Blood Urea Nitrogen 8.7 mg/dL (9.0-27.0); Calcium 8.5 mg/dL (8.7-10.3); Carbon Dioxide 24.3 mmol/L (21.6-31.8); Chloride 105 mmol/L (96-109); Glucose 109 mg/dL (70-110); Potassium 3.7 mmol/L (3.5-5.5); Sodium 139 mmol/L (135-145)
--- NOTE | 2024-10-20 11:31 | P.PN ---
Subjective Progress Note Date: 10/20/24 Principal diagnosis: Status post direct anterior right total hip arthroplasty Patient evaluated at bedside, she is resting in her hospital chair. Patient is feeling a lot better today. She did receive the 1 unit of blood yesterday, she is also receiving a fluid bolus today. Pain is well-controlled. Denies headaches, headedness, chest pain or shortness of breath Objective - Vital Signs Vital signs: Vital Signs Temp 98.4 F 10/20/24 07:11 Pulse 92 10/20/24 07:11 Resp 17 10/20/24 07:11 BP 95/56 10/20/24 07:11 Pulse Ox 99 10/20/24 07:11 FiO2 Intake & Output 10/19/24 10/20/24 10/20/24 18:59 06:59 18:59 Intake Total 310 Balance 310 Intake: Blood Product 310 Rc As-1 Unit 310 [id number] Other: # Voids 1 2 - Exam Right lower EXTR: Incision is clean, dry, and intact. The foam dressing is in good condition. There is minimal soft tissue swelling and ecchymosis surrounding the medial and lateral aspects of the incision. Calf is soft, no tenderness with palpation. Plantar flexion, dorsiflexion, EHL, FHL are intact. Sensory exam to light touch throughout the extremity is intact, dorsal pedis pulses 2+. - Labs CBC & Chem 7: 10/19/24 03:04 10/20/24 02:58 Labs: Abnormal Lab Results - Last 24 Hours (Table) 10/19/24 10/20/24 Range/Units 08:41 02:58 BUN 8.7 L (9.0-27.0) mg/dL BUN/Creatinine Ratio 10.88 L (12.00-20.00) Ratio Calcium 8.5 L (8.7-10.3) mg/dL Crossmatch See Detail Assessment and Plan Assessment: Acute blood loss anemia, expected surgical outcome Postoperative day #2 status post direct anterior right total hip arthroplasty Plan: Pain control, plan for discharge home on [place] and gabapentin DVT prophylaxis, continue current medications Weight-bear as tolerated with walker Icing and elevating of the extremity was discussed Medical recommendations appreciated Discharge planning: Plan for discharge home today Time with Patient: Less than 30
--- NOTE | 2024-10-20 11:35 | P.DS ---
Providers Date of admission: 10/18/24 12:04 Expected date of discharge: 10/20/24 Attending physician: Jim Fernández Consults: 10/18/24 12:04 Consult Physician Routine Consulting Provider: Ash Salgado Reason/Comments: Medical management Do you want consulting provider notified?: Yes Primary care physician: Ash Salgado [facility] Course: Date of admission: 10/18/2024 Date of discharge: 10/20/2024 Admission diagnosis: Status post direct anterior right total hip arthroplasty Discharge diagnosis: Same Attending physician: Dr. Fernández Surgical procedures: Direct anterior right total hip arthroplasty Brief history: Patient is a 73-year-old female with a history of progressive primary right knee osteoarthritis. At this point patient has failed conservative treatment measures and has opted to proceed with a elective direct anterior right total hip arthroplasty. Hospital course: Details of patient's surgery can be found in operative report. Patient tolerated the procedure well and was subsequently transported to orthopedic floor. Patient's orthopeidc and medical care was provided daily. Patient had daily laboratory tests performed for evaluation of overall blood counts. Patient had daily physical therapy to include strengthening range of motion as well as education with walker ambulation. Patient was treated with Plavix and aspirin for their postoperative DVT prophylaxis during their inpatient stay. Patient was noted to have a relatively uneventful postoperative course. Patient reported satisfactory pain control with oral pain medications by postoperative day 2. Patient showed satisfactory progress with physical therapy. Patient moved steadily through the program and had no difficulty meeting the goals by postoperative day 2. Given patient's otherwise satisfactory course and having met physical therapy goals, plan is to discharge patient home on postoperative day 2. Discharge condition/disposition: Patient will be discharged home in stable condition. Discharge medications: Instructions are given on resumption of patient's normal daily medications per primary care recommendation, in addition patient will be prescribed Olar 7.5 mg / 325 mg, gabapentin 100 mg, senna S, ferrous sulfate 325 mg,. Discharge instructions: 1. Wound care and infection precautions, keep incision dry and covered while showering, no lotions, creams, moisturizers. No soaking, tubs, pools, hottubs. Do not scrub over the incision. 2. Weight-bear as tolerated with walker / cane until follow-up. 3. Ice and elevate when necessary. Do not exceed 20 minutes per hour with ice pack. 4. Utilize compression sleeve until seen at first follow up appointment. 5. Visiting nursing care. 6. Home physical therapy 7. Pain meds and anticoagulants per prescription. 8. Pain medication has potential to cause constipation. Increase oral fluid and fiber intake. Contact primary care provider if you have not had a bowel movement within 48 hours after discharge 9. No anti-inflammatory medication until discussed at first post operative visit, this including Motrin, Aleve, Mobic, Diclofenac. 10. Follow up in office at 2 weeks postop with Jonathan Vila PA-C/Cali Junior 11. Follow up with your primary care doctor 7-10 days after discharge. 12. Contact [facility] with any questions, . Procedures: Direct anterior right total hip arthroplasty Patient Condition at Discharge: Good Plan - Discharge Summary Discharge Rx Participant: No New Discharge Prescriptions: New HYDROcodone/APAP 7.5-325MG [[place] 7.5] 1 each PO Q6HR PRN #28 tab PRN Reason: Pain Gabapentin [Gabarone] 100 mg PO BID PRN #30 tab PRN Reason: Pain Ferrous Sulfate [Iron (65 MG Elemental)] 325 mg PO DAILY #30 tab Sennosides/Docusate Sodium [Senna-S 8.6-50 mg Tablet] 2 each PO DAILY PRN #30 tablet PRN Reason: Constipation No Action Levothyroxine Sodium 150 mcg PO DAILY Sertraline [Zoloft] 100 mg PO TID Baclofen [Lioresal] 30 mg PO BID PRN PRN Reason: Pain Clopidogrel [Plavix] 75 mg PO QAM Ciprofloxacin HCl [Cipro] 500 mg PO Q12HR Acetaminophen with Codeine [Tylenol w/Codeine #4 Tablet] 1 tab PO DAILY PRN PRN Reason: Pain Discharge Medication List Levothyroxine Sodium 150 mcg PO DAILY 05/09/17 [History] Acetaminophen with Codeine [Tylenol w/Codeine #4 Tablet] 1 tab PO DAILY PRN 03/12/21 [History] Sertraline [Zoloft] 100 mg PO TID 03/12/21 [History] Baclofen [Lioresal] 30 mg PO BID PRN 10/12/24 [History] Clopidogrel [Plavix] 75 mg PO QAM 10/12/24 [History] Ciprofloxacin HCl [Cipro] 500 mg PO Q12HR 10/18/24 [History] Ferrous Sulfate [Iron (65 MG Elemental)] 325 mg PO DAILY #30 tab 10/20/24 [Rx] Gabapentin [Gabarone] 100 mg PO BID PRN #30 tab 10/20/24 [Rx] HYDROcodone/APAP 7.5-325MG [[place] 7.5] 1 each PO Q6HR PRN #28 tab 10/20/24 [Rx] Sennosides/Docusate Sodium [Senna-S 8.6-50 mg Tablet] 2 each PO DAILY PRN #30 tablet 10/20/24 [Rx] Follow up Appointment(s)/Referral(s): [facility], [NON-STAFF] - As Needed Uday Vila, QUIUQE [PHYSICIAN CALL TAKER] - 2 Weeks Activity/Diet/Wound Care/Special Instructions: Orthopedic Discharge Instructions: 1. Wound care and infection precautions, keep incision dry and covered while showering, no lotions, creams, moisturizers. No soaking, pools, hot tubs. Do not scrub over incision. 2. Weight-bear as tolerated with walker / cane until follow-up. 3. Ice and elevate when necessary. Do not exceed 20 minutes per hour with ice pack. 4. Utilize compression sleeve until seen at first follow up appointment. 5. Pain meds and anticoagulants per prescription. 6. Pain medication has potential to cause constipation. Increase oral fluid and fiber intake. Contact primary care provider if you have not had a bowel movement within 48 hours after discharge. 7. No anti-inflammatory medication until discussed at first post operative visit, this including Motrin, Aleve, Mobic, Diclofenac. 8. Follow up in office at 2 weeks postop with Jonathan Vila PA-C/Cali Gordillo PA-C 9. Follow up with your primary care doctor 7-10 days after discharge. 10. Contact [facility] with any questions, . Wound care instructions: 1. Okay to remove surgical dressing as of 10/27/2024 2. Okay to shower directly over the incision after removal of dressing Discharge Disposition: HOME WITH HOME HEALTH SERVICES
[2024-10-20 13:09] LABS: HCT 28.5 % (37.2-46.3); HGB 8.9 g/dL (12.0-15.0); MCH 29.3 pg (27.0-32.0); MCHC 31.2 g/dL (32.0-37.0); MCV 93.8 fL (80.0-97.0); Mean Platelet Volume 9.7 fL (9.5-12.2); Platelet Count 211 10*3/uL (140-440); RBC 3.04 10*6/uL (4.10-5.20); RDW 15.5 % (11.5-14.5); WBC 7.45 10*3/uL (4.50-10.00)
[2024-10-20 13:28] VITALS: BP 98/59; PULSE 65; RESP 18
--- NOTE | 2024-10-20 14:15 | P.PN ---
Subjective Progress Note Date: 10/20/24 - History of Present Illness 10/19/24 This is a 73-year-old female status post direct anterior right total hip arthroplasty secondary to right hip osteoarthritis. Blood pressures soft, complained of some lightheadedness.denies chest pain, palpitations or shortness of breath. Postoperative hemoglobin decreased to 8.3 from preop hemoglobin of 12. Currently receiving 1 unit of packed RBC. Tmax 99.4, normal WBC. Evaluated by PT. 10/20/2024 status post 1 unit of packed RBCs yesterday with hemoglobin increased today to 8.9. Blood pressures were soft earlier this morning, manual blood pressure currently reading 108/52, heart rate 65. Denies chest pain, palpitations or shortness of breath. Maintaining O2 sats in the high 90s to 100% on room air. Ambulating, tolerating exertion well. Denies lightheadedness dizziness or focal deficits. Positive diet intake, denies nausea vomiting or diarrhea. Passing flatus. Patient reports feels much better today, pain well-controlled. Patient is eager for discharge. Potassium 3.7, renal function within normal limits. Objective - Vital Signs Vital signs: Vital Signs Temp 98.4 F 10/20/24 13:27 Pulse 65 10/20/24 13:27 Resp 18 10/20/24 13:27 BP 98/59 10/20/24 13:27 Pulse Ox 100 10/20/24 13:27 FiO2 Intake & Output 10/19/24 10/20/24 10/20/24 18:59 06:59 18:59 Intake Total 310 Balance 310 Intake: Blood Product 310 Rc As-1 Unit 310 [id number] Other: # Voids 1 2 - Exam PHYSICAL EXAM: VITAL SIGNS: [Reviewed] GENERAL:alert and oriented x 3, sitting up in chair, no acute distress HEENT:Normocephalic, atraumatic ,conjunctivae normal. eyes normal. MMM. NECK: Supple, no JVD. CARDIOVASCULAR: S1, S2 regular. No murmur RESPIRATION: Unlabored, equal air entry, CTA. ABDOMEN: Soft, nondistended, nontender . No guarding. no rigidity, positive bowel sounds. Extremities: No calf tenderness, peripheral pulses intact. NERVOUS SYSTEM: Cranial N 2-12 grossly normal. No focal deficits. Skin: Warm and dry, no rash - Labs CBC & Chem 7: 10/20/24 02:58 10/20/24 02:58 Labs: Abnormal Lab Results - Last 24 Hours (Table) 10/19/24 10/20/24 10/20/24 Range/Units 08:41 02:58 02:58 RBC 3.04 L (4.10-5.20) 10*6/uL Hgb 8.9 L (12.0-15.0) g/dL Hct 28.5 L (37.2-46.3) % MCHC 31.2 L (32.0-37.0) g/dL RDW 15.5 H (11.5-14.5) % BUN 8.7 L (9.0-27.0) mg/dL BUN/Creatinine Ratio 10.88 L (12.00-20.00) Ratio Calcium 8.5 L (8.7-10.3) mg/dL Crossmatch See Detail Assessment and Plan Assessment: Right hip osteoarthritis status post direct anterior right total hip arthroplasty Acute blood loss anemia, postop, expected outcome, status post 1 unit of packed RBCs Hypotension, secondary to the above, improved Fibromyalgia Graves' disease Scoliosis Ankylosing spondylitis Former nicotine dependence Chronic venous insufficiency Plan: Continue on current medication regimine ,monitoring and symptomatic treatment. Oral potassium supplement x 1 prior to discharge ordered. discharge planning in progress for today as per orthopedic surgery. Patient has been advised to continue using incentive spirometer as previously advised for the next couple weeks . follow-up with PCP, Dr. Salgado in 1 week . pain management, DVT prophylaxis as per orthopedic surgery. The impression and plan of care has been dictated as directed. : I performed a history and examination of this patient, discussed the same with the dictator. I agree with the dictator's note ,documented as a scribe. Any additional findings or plans will be noted.
[2024-10-20] MEDS: POTASSIUM CHLORIDE ER 20 MEQ TAB.ER PO STA (14:29)
== END 2024-10-20 15:20 | disposition home health service (06) | DRG 470 ==
LOC: OR 08:06 → 4SSUR 11:59 → OR 12:04 → 4SSUR 12:04
PROVIDERS: ADMIT Orthopaedic Surgery; ATTEND Orthopaedic Surgery
PROC: 0SR904A Replacement of Right Hip Joint with Ceramic on Polyethylene Synthetic Substitute, Uncemented, Open Approach (ICD-10-PCS; principal; 2024-10-18 09:55)
PROC: 30233N1 Transfusion of Nonautologous Red Blood Cells into Peripheral Vein, Percutaneous Approach (ICD-10-PCS; 2024-10-19)
DX: M16.11 Unilateral primary osteoarthritis, right hip (principal); D62 Acute posthemorrhagic anemia; M45.9 Ankylosing spondylitis of unspecified sites in spine; E03.9 Hypothyroidism, unspecified; I25.10 Atherosclerotic heart disease of native coronary artery without angina pectoris; I87.2 Venous insufficiency (chronic) (peripheral); M41.9 Scoliosis, unspecified; M79.7 Fibromyalgia; Z87.891 Personal history of nicotine dependence; I95.9 Hypotension, unspecified; Z79.890 Hormone replacement therapy; Z79.02 Long term (current) use of antithrombotics/antiplatelets
CPT/HCPCS: 64473; 73501; 80048; 85025; 85027; 86850; 86900; 86901; 86920